=== PATIENT | female | born 1935 | race Caucasian/White ===

== ENCOUNTER 2018-06-16 15:12 | Emergency (ER) | payer MEDICARE, OTHER ==
[~2018-06-16] VITALS: Ht 157.5 cm; Wt 49.9 kg
[~2018-06-16 15:12] MED LIST: ACET325 PO; ALBU90OI; ALBU90OI INH; ALEN70 PO; ALPR.25 PO; ASPI325 PO; ATOR40TA PO; Aspirin EC81 MG PO; Augmentin 875-1 EACH PO; BENZ100A PO; BUDE6HFA INH; CHOL10002 PO; CIME400; CLOP75 PO; DILT120 PO; DULERA 200 MCG/13 GM INH; FAMO20 PO; FLUSAL1005 INH; GABA100 PO; HEMOTC PR; HYDCHL25 PO; HYDCHL50 PO; HYDR1TAB94 PO; HYDROCODONE-HOMA5 ML PO; IBUP800; INSLIS75I SC; LEVFLO500 PO; LEVSOD100; LEVSOD100 PO; LIDO5TP TOP; LORA10 PO; Lisinopril2.5 MG PO; Lopressor 25 mg25 MG PO; MAGCHL64ER PO; MAGOXI400 PO; MONT10T PO; MULVITMIND PO; Miralax17 GM PO; NEBULIZER; NITR.6SL SL; Norco 5-325 Ta1 EACH PO; OMEP20ER PO; POTA8; POTA8 PO; PRAV20; PRAV20 PO; PRED10 PO; Prednisone20 MG PO; QUININE SULFATE; TIOT18; TIOT18 INH; Ventolin Soln3 ML INH; Ventolin5 MG/1 ML INH; Zithromax250 MG PO
== END 2018-06-16 16:37 | disposition home or self-care (01) ==
LOC: ER 15:12
DX: S80.02XA Contusion of left knee, initial encounter (principal); S80.11XA Contusion of right lower leg, initial encounter; S80.12XA Contusion of left lower leg, initial encounter; S70.10XA Contusion of unspecified thigh, initial encounter; X58.XXXA Exposure to other specified factors, initial encounter; Z91.048 Other nonmedicinal substance allergy status; Z79.899 Other long term (current) drug therapy; Z79.82 Long term (current) use of aspirin; J45.909 Unspecified asthma, uncomplicated; J44.9 Chronic obstructive pulmonary disease, unspecified; E11.9 Type 2 diabetes mellitus without complications; Z87.891 Personal history of nicotine dependence
CPT/HCPCS: 93971; 99283-25

== ENCOUNTER 2018-09-04 07:09 | Day surgery (SDC) | payer MEDICARE, OTHER ==
[~2018-09-04] VITALS: Ht 157.5 cm; Wt 47.9 kg
[~2018-09-04 07:09] MED LIST changes: +LIVALO2 MG
--- NOTE | 2018-09-04 08:35 | NUR ---
09/04/18 [address] SHEPHERD AND DR GROSSMAN NOTIFIED PATIENT HAS HX OF CHEST PAIN ON 09/02/18 HAD 09/03/18 SHE STATES SHE TOOK BABY ASPRIN FOR THE MILD DISCOMFORT AND DID NOT HAVE TO USE HER NITRO. DR GROSSMAN ORDERED AN EKG. EKG WAS DONE BY [facility]. DR GROSSMAN REVIEWS EKG AND NO FURTHER ORDERS ARE GIVEN, THEY WILL PROCEED WITH THE SURGERY.
== END 2018-09-04 10:18 | disposition home or self-care (01) ==
LOC: ORSCSDS 07:09
PROVIDERS: Surgery
PROC: 0YU60JZ Supplement Left Inguinal Region with Synthetic Substitute, Open Approach (ICD-10-PCS; principal; 2018-09-04 08:30)
DX: K40.90 Unilateral inguinal hernia, without obstruction or gangrene, not specified as recurrent (principal); I25.5 Ischemic cardiomyopathy; J44.9 Chronic obstructive pulmonary disease, unspecified; I10 Essential (primary) hypertension; I25.10 Atherosclerotic heart disease of native coronary artery without angina pectoris; Z87.891 Personal history of nicotine dependence; Z79.01 Long term (current) use of anticoagulants; Z79.82 Long term (current) use of aspirin; Z79.899 Other long term (current) drug therapy
CPT/HCPCS: 93005; 93010; C1781; J0690; J2250; J3010; J7120

== ENCOUNTER 2018-10-13 15:43 | Inpatient (IN) | payer MEDICARE, OTHER ==
[~2018-10-13] VITALS: Ht 157.5 cm; Wt 47.6 kg
[~2018-10-13 15:43] MED LIST changes: -HYDCHL25 PO; -LEVSOD100 PO; +LEVSOD125 PO; -LIVALO2 MG; +LIVALO2 MG PO; -TIOT18 INH
[2018-10-13 16:42] LABS: BASOPHILS ABSOLUTE AUTO 0.05 K/mm3 (0.00-0.23); BASOPHILS PERCENT AUTO 1 % (0-2); EOSINOPHILS ABSOLUTE AUTO 0.48 K/mm3 (0.00-0.68); EOSINOPHILS PERCENT AUTO 6 % (0-6); Hematocrit 41.7 % (33.0-51.0); IMMATURE GRAN ABSOLUTE AUTO 0.01 K/mm3 (0.00-0.10); IMMATURE GRAN PERCENT AUTO 0 % (0-1); LYMPHOCYTES ABSOLUTE AUTO 2.45 K/mm3 (0.84-5.20); LYMPHOCYTES PERCENT AUTO 29 % (21-46); MONOCYTES ABSOLUTE AUTO 0.68 K/mm3 (0.16-1.47); MONOCYTES PERCENT AUTO 8 % (4-13); Mean Corpuscular HGB 30.9 pg (26.0-34.0); Mean Corpuscular HGB Conc 31.2 g/dL (31.5-36.5); Mean Corpuscular Volume 99 fL (80-100); Mean Platelet Volume 11.7 fL (9.1-12.4); NEUTROPHILS ABSOLUTE AUTO 4.72 K/mm3 (1.96-9.15); NEUTROPHILS PERCENT AUTO 56 % (41-73); Platelet Count 205 K/mm3 (150-400); RDW Coefficient Variation 13.8 % (11.7-14.2); RDW Standard Deviation 50.8 fL (35.1-46.3); Red Blood Cell Count 4.21 M/mm3 (3.80-5.20); White Blood Cell Count 8.39 K/mm3 (4.00-11.30)
[2018-10-13 17:17] LABS: Alanine Aminotransfer (ALT/SGP 19 U/L (12-78); Albumin, Blood 3.8 g/dL (3.4-5.0); Albumin/Globulin Ratio 1.2 (0.8-1.8); Alk Phos 48 U/L (50-136); Anion Gap 3 mmol/L (6-16); Aspartate Aminotrans (AST/SGOT 17 U/L (12-37); Bilirubin, Total 0.6 mg/dL (0.1-1.0); Blood Urea Nitrogen 15 mg/dL (8-24); Bun/Creatinine Ratio 23.3 (12.0-20.0); CO2, Blood 36 mmol/L (21-32); Chloride, Blood 97 mmol/L (98-108); Creatinine, Blood 0.64 mg/dL (0.40-1.00); Globulin, Blood 3.1 g/dL (2.2-4.0); Glomerular Filtration Rate >60 (60-); Glucose, Blood 100 mg/dL (70-99); Sodium, Blood 136 mmol/L (136-145); Total Protein, Blood 6.9 g/dL (6.4-8.2); Troponin I 0.022 ng/mL (0.000-0.040)
[2018-10-13] MEDS ORDERED: CLOP75 PO (17:46)
[2018-10-13] MEDS ORDERED: ALBU90OI6 INH (17:47)
[2018-10-13] MEDS ORDERED: POTCHL20ER PO (17:49)
[2018-10-13] MEDS ORDERED: HYDCHL25 PO (18:56)
--- NOTE | 2018-10-14 03:34 | NUR ---
SHIFT SUMMARY THE PT ADMITTED FOR CPOD EXACERBATION. FULL CODE. REGULAR DIET. BEDREST. TELE-SINUS TACHYCARDIA WITH PAC AND PVC AT A RATE OF 88 PER BOOM TENDER. THE PT WAS TRIED ON BIPAP AND CPAP BUT REPORTED NO INCREASED RELIEF. THE PT DID HOWEVER REPORT SOME RELIEF SINCE ADMISSION AFTER RECIEVING DIURETIC. LOVENOX. 20 G IV TO L WRIST. STANDBY ASSIST TO BSC, CAN WALK TO BATHROOM BUT IS BEDREST AND HAS SOME WEAKNESS. 4 L O2 AND PT REPORTS THIS IS HER CONTINUOUS BASELINE DOSE AT HOME. TAKE MEDICATION WHOLE WITH WATER WITHOUT COMPLICATIONS. THE PT PRESENTED TO [employer] WITH C/O WORSENING SOB OVER THE PAST 2 WEEKS. THE PT REPORTED HAVING INCREASED WEAKNESS AND COUGH WITH ONLY CLEAR PHLEM OVER THE PAST TWO WEEKS. LS ARE DIMINISHED. THE PT HAD A SNACK WHEN ARRIVING ON MEDICAL UNIT. THE PT IS ALERT AND ORIENTED X3, PLEASENT AND COOPERATIVE WITH CARE. APPEARS TO BE RESTING COMFORTABLY AT THIS TIME WITH NO APPARENT SIGNS OF ACUTE DISTRESS. ABLE TO MAKE NEEDS KNOWN AND CALL LIGHT IN REACH.
[2018-10-14 06:02] LABS: Anion Gap 7 mmol/L (6-16); Blood Urea Nitrogen 19 mg/dL (8-24); Bun/Creatinine Ratio 31.2 (12.0-20.0); CO2, Blood 35 mmol/L (21-32); Calcium, Blood 8.5 mg/dL (8.5-10.1); Chloride, Blood 95 mmol/L (98-108); Creatinine, Blood 0.61 mg/dL (0.40-1.00); Glomerular Filtration Rate >60 (60-); Glucose, Blood 166 mg/dL (70-99); Potassium, Blood 3.8 mmol/L (3.5-5.5); Sodium, Blood 137 mmol/L (136-145)
--- NOTE | 2018-10-14 15:55 | NUR ---
SHE HAS REMAINED ON 3L NC ALL DAY. SHE RECEIVED NTG X1 FOR PAIN/PRESSURE IN HER L SCAPULA AND ANT. LEFT CHEST. NTG WAS EFFECTIVE. SHE IS ALWAYS SOB. SHE JUST LEFT BY W/C TO GO DOWNSTAIRS FOR HER CTA AFTER THE CUSHION MAKER CONSULTED WITH HER. ECHO DONE JUST BEFORE THE CUSHION MAKER ARRIVED. TELE SHOWS SINUS TACH WITH PVC'S AND PAC'S. RATE MOST RECENTLY 115. TROP 0.092. 2ND ONE DRAWN BUT NOT RESULTED YET. 2ND IV SITE STARTED SPECIFICALLY FOR THE CTA. SHE IS VAGUE AND ROUNDABOUT WHEN ANSWERING QUESTIONS.
--- NOTE | 2018-10-14 16:13 | NUR ---
I UPDATED ON THE MANAGER TRAINEE'S ORDERS, THAT THE PATIENT JUST RETURNED FROM HER CTA AND LAB JUST REPORTED TO ME A CRITICAL TROPONIN RESULT. HE WILL EVALUATE.
[2018-10-14 16:47] LABS: Mean Platelet Volume 11.6 fL (9.1-12.4); Platelet Count 226 K/mm3 (150-400)
[2018-10-14 17:02] LABS: International Normalized Ratio 1.03; Prothrombin Time Results 10.9 Sec (9.7-11.5)
--- NOTE | 2018-10-14 18:36 | NUR ---
SHE HAD A BUSY DAY WITH AN ECHO, CARDIOLOGY CONSULT, CTA OF THE CHEST MULTIPLE LAB DRAWS AND NOW A HEPARIN DRIP HAS BEEN STARTED. SHE HAS BEEN SOB. SHE HAD CP AND WAS GIVEN NTG X1. PAS ON BILAT. TELE ON. NO CHANGE.LAST TROP 0.884. NEXT TROP AT 8 PM.
--- NOTE | 2018-10-15 06:43 | NUR ---
SHIFT SUMMARY PT IS AN 83 Y/O FEMALE, ADMITTED FOR COPD EXACERBATION. PER DAY SHIFT REPORT, SHE BEGAN HAVING CHEST PAIN YESTERDAY MORNING. THIS EVENING, SHE DENIED ANY PAIN AT REST, BUT SAID SHE STILL FELT "HEAVINESS" IN HER CHEST WITH EXERTION. ON THE RECHECK, THE PT'S TROPONIN HAD INCREASED FROM 0.8 TO 1.8. AN ORDER WAS LEFT NOT TO INFORM THE PHYSICIAN OF CRITICAL TROPONINS. VITALS REMAINED STABLE. SHE DID REPORT SOME INCREASED SOB WITH MOVEMENT AND EXERTION. NO NAUSEA REPORTED. NO OTHER ACUTE CHANGES IN PT CONDITION NOTED. WILL CONTINUE TO MONITOR AND TREAT PER EMAR.
[2018-10-15 06:51] LABS: BASOPHILS ABSOLUTE AUTO 0.01 K/mm3 (0.00-0.23); BASOPHILS PERCENT AUTO 0 % (0-2); EOSINOPHILS PERCENT AUTO 0 % (0-6); Hematocrit 37.7 % (33.0-51.0); Hemoglobin 12.2 g/dL (11.5-16.0); IMMATURE GRAN ABSOLUTE AUTO 0.07 K/mm3 (0.00-0.10); IMMATURE GRAN PERCENT AUTO 0 % (0-1); LYMPHOCYTES ABSOLUTE AUTO 1.46 K/mm3 (0.84-5.20); LYMPHOCYTES PERCENT AUTO 9 % (21-46); MONOCYTES ABSOLUTE AUTO 0.81 K/mm3 (0.16-1.47); MONOCYTES PERCENT AUTO 5 % (4-13); Mean Corpuscular HGB 30.9 pg (26.0-34.0); Mean Corpuscular HGB Conc 32.4 g/dL (31.5-36.5); Mean Platelet Volume 11.5 fL (9.1-12.4); NEUTROPHILS ABSOLUTE AUTO 14.11 K/mm3 (1.96-9.15); NEUTROPHILS PERCENT AUTO 86 % (41-73); Platelet Count 203 K/mm3 (150-400); RDW Coefficient Variation 14.2 % (11.7-14.2); RDW Standard Deviation 49.9 fL (35.1-46.3); Red Blood Cell Count 3.95 M/mm3 (3.80-5.20); White Blood Cell Count 16.46 K/mm3 (4.00-11.30)
[2018-10-15 06:58] LABS: Mean Corpuscular Volume 95 fL (80-100)
[2018-10-15 07:26] LABS: Anion Gap 7 mmol/L (6-16); Blood Urea Nitrogen 30 mg/dL (8-24); Bun/Creatinine Ratio 41.6 (12.0-20.0); CO2, Blood 36 mmol/L (21-32); Calcium, Blood 8.2 mg/dL (8.5-10.1); Chloride, Blood 92 mmol/L (98-108); Creatinine, Blood 0.72 mg/dL (0.40-1.00); Glomerular Filtration Rate >60 (60-); Glucose, Blood 131 mg/dL (70-99); Potassium, Blood 3.4 mmol/L (3.5-5.5); Sodium, Blood 135 mmol/L (136-145)
--- NOTE | 2018-10-15 12:44 | NUR ---
NO COMPLAINTS OF CP TODAY SO FAR. SHE HAS A CRITICALLY HIGH TROPONIN AND HAS BEEN NPO EXCEPT WATER AND MEDS FOR A CARDIAC ANGIOGRAM LATER TODAY. HEPARIN GGT WAS TITRATED UP FOR ANOTHER SUBTHERAPEUTIC PTT THIS MORNING. TELE IS NSR WITH PAC'S AND PVC'S. WEARING PAS BILAT. WHEN IN BED. SHE HAS BEEN VOIDING ON BSC A LOT D/T IV LASIX.
--- NOTE | 2018-10-15 13:34 | NUR ---
PATIENT DID NOT EAT BREAKFAST OR LUNCH THIS SHIFT DUE TO BEING NPO FOR A PROCEDURE.
--- NOTE | 2018-10-15 14:05 | NUR ---
Initial Visit: Palliative Care Consult for Advanced Care Planning and AD/POLST. Pt is A&Ox4 and denies pain at this time. She reports mild dyspnea and mild anxiety. Pt stated that she just received a breathing treatment shortly before visit and does not tolerate the treatment well. Pt also states the mild anxiety is due to the anticipation of her procedure today. Engaged in therapeutic conversation regarding advance care planning. Pt is of Zoroastrianism efren and lives at home alone. She has a daughter who lives in [place] and a brother who lives local. Pt ahs a caregiver who assists with her laundry and house cleaning for 3 hours twice a week. Pt reports that she has been feeling more fatigue over the last 6 months. She requires the use of a walker on occasion other he independent at home. She reports having rails in her bathroom and bath tub to assist her in safety while bathing. She also has a shower bench. Pt reports having a senior change management manager who provides transportation to and from appointments. Engaged in discussion regarding disease process and importance of communication with her PCP and specialist in knowing her disease trajectory. Encouraged Pt to have these discussions routinely so she can plan accordingly. Discussed AD/POLST with Pt and she reports no interest at this time. Pt does express concerns of needing a new bed and states she has difficulty breathing at night and lying flat. Suggested to Pt to have discussion with her PCP for prescription of hospital bed. Pt is agreeable to suggestion. Pt reports no other concerns at this time. Will remain available
--- NOTE | 2018-10-15 14:22 | NUR ---
Late entry from initial visit. Spoke with Pt's respiratory therapist regarding Pt's difficulty tolerating her albuterol treatment. She reports that she will have the medication changed.
--- NOTE | 2018-10-15 15:42 | NUR ---
Mrs. Guerra was rather quiet. She is awaiting a proceedure to determine poc. She said very little but was pleasant. She allowed me to pray for her at bedside. Advised patternmaker sample services would remain available.
--- NOTE | 2018-10-15 15:56 | NUR ---
TO PERFORMANCE ANALYST AT 1527 VIA W/C. SHE HAS BEEN NPO EXCEPT FOR SOME ICE CHIPS. NO COMPLAINTS TODAY. HER FRIEND BROUGHT HER IN HER OVERNIGHT BAG. ALL BELONGINGS HAVE BEEN TAKEN DOWN TO ROOM PCU 12 WHERE SHE WILL BE POST PRCEDURE. HEPARIN DRIP WAS STOPPED AT 1526 WHEN SHE TRANSPORTED DOWNSTAIRS TO PERFORMANCE ANALYST.
--- NOTE | 2018-10-15 16:14 | NUR ---
REPORT GIVEN TO ALLEN LARRY IN PCU.
--- NOTE | 2018-10-15 19:43 | NUR ---
END OF SHIFT SUMMARY ASSUMED CARE OF PATIENT AROUND 1630 FROM AIRCRAFT MANAGER. RECEIVED INITIAL REPORT FROM MEDICAL FLOOR NURSE AND THEN AIRCRAFT MANAGER NURSE. PT HAD ANGIOGRAM DUE TO CRITICALLY HIGH TROPONIN OF 4.3 THIS AM AND CP. ANGIO FOUND LESIONS IN RCA THAT WERE CALCIFIED. UNABLE TO INTERVENE AT THIS FACILITY. PT TO BE TRANSFERED TO ACCEPTING DOCTOR EITHER TONIGHT OR TOMORROW 10/16/2018 TO [facility] IN [place] FOR PROCEDURE. PATIENT HAS TR BAND IN PLACE RW. A TOTAL OF 4ML AIR HAS BEEN REMOVED, NO BLEEDING NOTED. DISTAL AREA OF HAND WARM, GOOD CAP REFILL, NO PAIN REPORTED BY PATIENT IN WRIST OR CHEST. DR SILVA TO ROOM AT 1800 TO ASSESS PT, PLACES ORDER TO CONTINUE HEPARIN DRIP AT RATE PREVIOUSLY INFUSING PREPROCEDURE. PHARMACY NOTIFIED. PT HAS CONTINUED TO DENY PAIN, STATES NO NAUSEA, OR ANY REAL CONCERNS AT THIS TIME. FAMILY HAS BEEN NOTIFIED OF PLAN TO TRANSFER TO [place]. LAST TROPONIN LEVEL 2.39. REPORT GIVEN TO IVAN YA RN.
[2018-10-16 02:16] LABS: Hemoglobin 11.9 g/dL (11.5-16.0); Mean Corpuscular HGB 31.6 pg (26.0-34.0); Mean Corpuscular HGB Conc 33.1 g/dL (31.5-36.5); Mean Corpuscular Volume 96 fL (80-100); Platelet Count 206 K/mm3 (150-400); RDW Coefficient Variation 14.6 % (11.7-14.2); RDW Standard Deviation 51.6 fL (35.1-46.3); Red Blood Cell Count 3.77 M/mm3 (3.80-5.20); White Blood Cell Count 13.15 K/mm3 (4.00-11.30)
[2018-10-16 02:34] LABS: Anion Gap 5 mmol/L (6-16); Blood Urea Nitrogen 36 mg/dL (8-24); Bun/Creatinine Ratio 40.4 (12.0-20.0); CO2, Blood 37 mmol/L (21-32); Calcium, Blood 8.2 mg/dL (8.5-10.1); Chloride, Blood 96 mmol/L (98-108); Creatinine, Blood 0.89 mg/dL (0.40-1.00); Glomerular Filtration Rate >60 (60-); Glucose, Blood 121 mg/dL (70-99); Potassium, Blood 3.8 mmol/L (3.5-5.5); Sodium, Blood 138 mmol/L (136-145)
--- NOTE | 2018-10-16 02:59 | NUR ---
PREVIOUS TRANSFER PT WAS TRANSFERRED INTO PCU POST ANGIO ON 10/15/18 @ 1700. NO ORDER WAS PLACED AT THAT TIME, SO ORDER PLACED PER DR. MAN AT THIS TIME.
--- NOTE | 2018-10-16 06:31 | NUR ---
SHIFT SUMMARY PT ALERT AND ORIENTED X 3 THROUGHOUT SHIFT. SHE WAS PLEASANT AND COOPERATIVE WITH VITALS AND ASSESSMENTS. PT DENIED ANY COMPLAINTS OF PAIN DURING THE NIGHT. SHE HAD HER TR BAND REMOVED AND OPSITE PLACED TO RIGHT WRIST. NO BLEEDING, REDNESS, SWELLING, OBSERVED TO SITE. SHE HAD NO ACUTE CHANGES TO VITALS OR MENTATION. SHE WILL CONTINUE TO BE MONITORED UNTIL HANDOFF TO DAYSHIFT RN.
--- NOTE | 2018-10-16 07:07 | NUR ---
RIGHT WRIST SITE VISUALIZED ON HANDOFF. NO BLEEDING, BRUISING, SWELLING OR HEAMTOMA.
--- NOTE | 2018-10-16 13:51 | NUR ---
REPORT GIVEN TO JOHNSON LARRY AT [facility].
--- NOTE | 2018-10-16 14:56 | NUR ---
PT TRANSFER / SHIFT SUMMARY ASSUMED CARE OF PT @0700. PT PRESENTS STABLE. VS HAVE REMAINED STABLE THIS SHIFT. HR NSR/PAC/PVC, 80'S TO 100'S. PT ON 3LNC, SATS >94%. THIS IS BASELINE O2 FOR PATIENT. LUNGS DIM TO AUSCULTATION. ARMBOARD IN PLACE, RW DUE TO POST ANGIO YESTERDAY. ANGIO SITE, PINHOLE, LITTLE BLOOD PRESENT. DISTAL SITE WARM, CAP REFILL <3SEC. NO OBVIOUS SIGNS OF EXTERNALK/INTERNAL HEMORRHAGE AT SITE. PT DENYING PAIN AND CP THIS SHIFT. PT HAS BEEN UP AND OUT OF BED FOR BREAKFAST IN CHAIR. HEPARIN DRIP INFUSION @19 U/KG/HR, TITRATED FROM 18 U/KG/HR @1200 VIA PHARMACIST. REPORT GIVEN TO NURSE RECEIVING PATIENT TRANSFER. SEE NOTE. PT RECEIVES BED AT [facility]. COBRA TRANSFER PAPERWORK COMPLETED. [facility] CREW ARRIVED @1430 TO TRANSFER PT. BACK UP IV LINE PLACED BY ANDREW WOODRUFF. HEPARING TO CONTINUE INFUSING WITH TRANSFER. PT TRANSFERED VIA [facility] @1450. PT HAS BELONGINGS. PAPERWORK GIVEN TO AMB CREW.
== END 2018-10-16 15:27 | disposition short-term general hospital (02) | DRG 189 ==
LOC: ER 15:43 → MEDS 17:45 → PCU 10-15 15:30
PROVIDERS: Internal Medicine Cardiovascular Disease; Pharmacist; Physician Assistant; ADMIT Internal Medicine
PROC: 5A09357 Assistance with Respiratory Ventilation, Less than 24 Consecutive Hours, Continuous Positive Airway Pressure (ICD-10-PCS; principal; 2018-10-15)
PROC: B2111ZZ Fluoroscopy of Multiple Coronary Arteries using Low Osmolar Contrast (ICD-10-PCS; 2018-10-15)
DX: J96.21 Acute and chronic respiratory failure with hypoxia (principal); I21.4 Non-ST elevation (NSTEMI) myocardial infarction; J44.1 Chronic obstructive pulmonary disease with (acute) exacerbation; I50.32 Chronic diastolic (congestive) heart failure; Q21.1 Atrial septal defect; I25.10 Atherosclerotic heart disease of native coronary artery without angina pectoris; Z87.891 Personal history of nicotine dependence; Z99.81 Dependence on supplemental oxygen; I11.0 Hypertensive heart disease with heart failure; E03.9 Hypothyroidism, unspecified; R00.0 Tachycardia, unspecified; M81.0 Age-related osteoporosis without current pathological fracture; Z95.0 Presence of cardiac pacemaker; I25.5 Ischemic cardiomyopathy; Z79.82 Long term (current) use of aspirin; I49.1 Atrial premature depolarization
CPT/HCPCS: 36415; 71045; 71260; 80048; 80053; 83880; 84484; 85025; 85027; 85049; 85347; 85379; 85610; 85730; 92920; 93005; 93010; 93306; 93454; 94640; 94660; 94760; 96374; 97165; 97530; 99285-25; C1725; C1769; C1887; C1894; C9113; J1644; J1650; J1940; J2250; J2920; J3010; J7030; J7512; Q9967

== ENCOUNTER 2018-10-19 17:14 | Inpatient (IN) | payer MEDICARE, OTHER ==
[~2018-10-19] VITALS: Ht 152.4 cm; Wt 48.8 kg
[~2018-10-19 17:14] MED LIST changes: +ALBU90OI6 INH; +HYDCHL25 PO; +POTCHL20ER PO
[2018-10-19] MEDS ORDERED: DILT180 PO (17:50)
[2018-10-19] MEDS ORDERED: CLOP75 PO (17:50)
[2018-10-19] MEDS ORDERED: CHOL10002 PO (17:50)
[2018-10-19] MEDS ORDERED: NITR.4SL SL (17:52)
[2018-10-19 18:10] LABS: Base Excess Venous 7.9 mmol/L; Bicarbonate Venous 30.9 mmol/L (24.0-30.0); PCO2 Venous 44.2 mmHg (38-42); PO2 Venous 136 mmHg (38-42); pH Blood Venous 7.46 (7.34-7.37)
[2018-10-19 18:20] LABS: BASOPHILS ABSOLUTE AUTO 0.01 K/mm3 (0.00-0.23); BASOPHILS PERCENT AUTO 0 % (0-2); EOSINOPHILS ABSOLUTE AUTO 0.01 K/mm3 (0.00-0.68); EOSINOPHILS PERCENT AUTO 0 % (0-6); Hematocrit 36.1 % (33.0-51.0); Hemoglobin 11.7 g/dL (11.5-16.0); IMMATURE GRAN ABSOLUTE AUTO 0.05 K/mm3 (0.00-0.10); IMMATURE GRAN PERCENT AUTO 0 % (0-1); LYMPHOCYTES ABSOLUTE AUTO 1.49 K/mm3 (0.84-5.20); LYMPHOCYTES PERCENT AUTO 12 % (21-46); MONOCYTES ABSOLUTE AUTO 1.59 K/mm3 (0.16-1.47); MONOCYTES PERCENT AUTO 12 % (4-13); Mean Corpuscular HGB 30.7 pg (26.0-34.0); Mean Corpuscular HGB Conc 32.4 g/dL (31.5-36.5); Mean Corpuscular Volume 95 fL (80-100); Mean Platelet Volume 12.9 fL (9.1-12.4); NEUTROPHILS ABSOLUTE AUTO 9.84 K/mm3 (1.96-9.15); NEUTROPHILS PERCENT AUTO 76 % (41-73); Platelet Count 198 K/mm3 (150-400); RDW Coefficient Variation 14.5 % (11.7-14.2); RDW Standard Deviation 50.4 fL (35.1-46.3); Red Blood Cell Count 3.81 M/mm3 (3.80-5.20); White Blood Cell Count 12.99 K/mm3 (4.00-11.30)
[2018-10-19 18:35] LABS: Alanine Aminotransfer (ALT/SGP 74 U/L (12-78); Albumin, Blood 3.7 g/dL (3.4-5.0); Albumin/Globulin Ratio 1.2 (0.8-1.8); Alk Phos 45 U/L (50-136); Anion Gap 6 mmol/L (6-16); Aspartate Aminotrans (AST/SGOT 37 U/L (12-37); Bilirubin, Total 0.7 mg/dL (0.1-1.0); Blood Urea Nitrogen 36 mg/dL (8-24); Bun/Creatinine Ratio 47.9 (12.0-20.0); CO2, Blood 31 mmol/L (21-32); Calcium, Blood 8.4 mg/dL (8.5-10.1); Chloride, Blood 95 mmol/L (98-108); Creatinine, Blood 0.75 mg/dL (0.40-1.00); Globulin, Blood 3.1 g/dL (2.2-4.0); Glomerular Filtration Rate >60 (60-); Glucose, Blood 109 mg/dL (70-99); Potassium, Blood 3.7 mmol/L (3.5-5.5); Sodium, Blood 132 mmol/L (136-145); Total Protein, Blood 6.8 g/dL (6.4-8.2)
[2018-10-19] MEDS ORDERED: DULERA 100 MCG/13 GM PO (20:28)
[2018-10-19] MEDS ORDERED: PANT20 PO (20:30)
[2018-10-19] MEDS ORDERED: ALBU3IS NEB (20:36)
[2018-10-19] MEDS ORDERED: TIOT18 INH (20:37)
[2018-10-19] MEDS ORDERED: ATOR80 PO (20:37)
[2018-10-19] MEDS ORDERED: GABA100 PO (21:13)
--- NOTE | 2018-10-20 04:20 | NUR ---
SUMMARY: PT ADMITTED TO ROOM 301 AT 2134. SHE'S A/OX4, SPECIFIES NEEDS AND IS 1-2 ASSIST OOB. SHE HAD X4 STENTS PLACED RECENTLY IN [place] AND WAS D/C'D ON 10/19/18 BUT CAME TO ER W/SOB AND HYPOXIA. CRITICAL TROPONIN NOTED BUT ER MD DOCUMENTATION STATES ANTICIPATED D/T RECENT STENTS. SHE DENIES CP AND S/S CARDIAC DISTRESS. PT CONT'S SOB W/ACTIVITY AND CAN BECOME SO JUST WHILE TALKING/EATING. LS ARE CLEAR AND DIM IN BASES. SHE'S NSR/S.TACH W/PAC'S, RATE 80-100'S AND BECOMES SLIGHTLY TACHYCARDIC WHEN SOB. RT PROVIDED BX TX'S AND TITRATED O2 UP TO 6L D/T DESATS PER CONT BIOX. IV ABX RECIEVED THIS SHIFT FOR PROBABLE RLL PNM W/PLEURAL EFFUSION. 2+EDEMA NOTED TO BLE'S AND SOME DEPENDENT EDEMA NOTED TO BUE'S. ARMS ARE GROSSLY BRUISED FROM STENT PLACEMENT AND HOSPITALISATIONS. TEGADERM DX TO R.WRIST CATH SITE IS C/D/I. VSS/AFEBRILE, NO ACUTE CHANGES. WILL MONITOR AND REPORT TO DAY RN.
[2018-10-20 04:48] LABS: BASOPHILS PERCENT AUTO 0 % (0-2); EOSINOPHILS PERCENT AUTO 0 % (0-6); IMMATURE GRAN ABSOLUTE AUTO 0.01 K/mm3 (0.00-0.10); IMMATURE GRAN PERCENT AUTO 0 % (0-1); LYMPHOCYTES ABSOLUTE AUTO 0.48 K/mm3 (0.84-5.20); LYMPHOCYTES PERCENT AUTO 12 % (21-46); MONOCYTES ABSOLUTE AUTO 0.05 K/mm3 (0.16-1.47); MONOCYTES PERCENT AUTO 1 % (4-13); Mean Corpuscular HGB 31.1 pg (26.0-34.0); Mean Corpuscular HGB Conc 32.4 g/dL (31.5-36.5); Mean Corpuscular Volume 96 fL (80-100); NEUTROPHILS ABSOLUTE AUTO 3.43 K/mm3 (1.96-9.15); NEUTROPHILS PERCENT AUTO 86 % (41-73); Platelet Count 165 K/mm3 (150-400); RDW Coefficient Variation 14.6 % (11.7-14.2); RDW Standard Deviation 51.8 fL (35.1-46.3); Red Blood Cell Count 3.54 M/mm3 (3.80-5.20); White Blood Cell Count 3.97 K/mm3 (4.00-11.30)
[2018-10-20 05:05] LABS: Alanine Aminotransfer (ALT/SGP 63 U/L (12-78); Albumin, Blood 3.2 g/dL (3.4-5.0); Albumin/Globulin Ratio 1.1 (0.8-1.8); Alk Phos 43 U/L (50-136); Anion Gap 5 mmol/L (6-16); Aspartate Aminotrans (AST/SGOT 31 U/L (12-37); Bilirubin, Total 0.4 mg/dL (0.1-1.0); Blood Urea Nitrogen 33 mg/dL (8-24); CO2, Blood 33 mmol/L (21-32); Calcium, Blood 7.9 mg/dL (8.5-10.1); Chloride, Blood 99 mmol/L (98-108); Creatinine, Blood 0.72 mg/dL (0.40-1.00); Globulin, Blood 2.9 g/dL (2.2-4.0); Glomerular Filtration Rate >60 (60-); Glucose, Blood 143 mg/dL (70-99); Potassium, Blood 4.2 mmol/L (3.5-5.5); Sodium, Blood 137 mmol/L (136-145); Total Protein, Blood 6.1 g/dL (6.4-8.2)
--- NOTE | 2018-10-20 07:00 | NUR ---
PT WAS UP TO BSC THIS MORNING AT 0620 AND DESATED TO 80'S% ON 6L HUMIDIFIED O2 AND HR ELEVATED TO 150'S BPM PER CONT BIOX. PT WASN'T RECOVERING AND APPEARED VERY SOB W/ACCESSORY MUSCLE USE. RESPS EVEN BUT LABORED AND RR WAS 20'S RESPS PER MINUTE. O2 TURNED UP TO 11L TO MAINTAIN SPO2>90%. TELEMETRY STATED PT HR WAS MAINTAINING >130'S AND APPEARED A.FIB. DAY SHIFT RN REPORT GIVEN AND SHE CALLED HOSPITALIST FOR EKG ORDER. EKG SHOWED AFIB W/RVR. AM PO CARDIZEM GIVEN EARLY AND DAY RN INHERITED CARE AND ADDITIONAL ORDERS AT THAT TIME.
--- NOTE | 2018-10-20 09:23 | NUR ---
ELEVATED HEART RATE/TRANSFER THIS RN RECEIVED REPORT FROM NOC RN THAT PT'S HEART RATE HAD INCREASED TO 150'S AND SUSTAINING AFTER GETTING UP TO BSC. DR. ALLEN WAS NOTIFIED AND EKG DONE AND FOUND THAT PT WAS IN AFIB WITH RVR. IV CARDIZEM GIVEN X2 AND IV METOPROLOL IV ADMINISTERED X1. PT'S HEART RATE CONTINUES TO BE 150'S. PT SHORT OF BREATH AND OXYGEN SATURATION 92% ON 9 LITERS VIA NC. PT TRANSFERRED TO PCU 16 AND REPORT GIVEN AT BEDSIDE.
--- NOTE | 2018-10-20 09:27 | NUR ---
PT TRANFERRED FROM MEDICAL FLOOR. SHE WENT INTO AFIB AND AFTER SEVERAL INTERVENTIONS FROM AND HER RN ORDERED THE TRANSFER TO PCU TO START AMNIODERONE DRIP. PT ARRIVED ON UNIT, SHE IS SOB AND VERY ANXIOUS AND FIDGITING. SHE IS NOTICIBLY SHAKING AND STATES THE HAS A TREMOR AT BASELINE. USED THERAPUTIC COMMUNICATION AND GOT PT TO BEGIN DEEP BREATHING AND STARTING TO SLOW DOWN. SHE STARTED TO CALM HERSELF DOWN SHE CONVERTED TO NSR FROM AFIB. ACCORDING TO SOA ENGINEER PT CONVERTED AT 0927.
--- NOTE | 2018-10-20 16:27 | NUR ---
PT SYNCOPAL EVENT: MARKIE CEDENO AND MARKIE STAS REPORTED THAT PATIENT WAS OUT OF CHAIR AND HAD CORDS STRETCHED OUT, HE WAS WEAK AND APPEARED CONFUSED. GUEST LAUNDRY ATTENDANT'S HELPED PT BACK TO CHAIR AND TOOK BLOOD PRESSURE, 78/49. PT ASSISTED BACK TO BED, TOOK ANOTHER BP SYSTOLIC IN THE 115 RANGE. AFTER RESTING AND VISITING WITH DR. ABREU WHO DROPPED IN TO SEE PATIENT BP RESOLVED TO 130'S SYSTOLICALLY. DR. ABREU STATED PT NEEDS TO ONLY GET UP WITH ASSISTANCE AND NEEDS TO STAY ON BEDREST UNTIL DINNER TO RECOVER. WILL CONTINUE TO MONITOR AND TREAT PER ORDERS.
--- NOTE | 2018-10-20 19:47 | NUR ---
PT HAD A WONDERFUL DAY TODAY, SHE HAS CONTINUED TO HAVE STABLE VS AND POSITIVE AFFECT THROUGHOUT THE DAY. SHE HAD A BATH AND RELAXED DURING THIS SHIFT. PT ABLE TO GET UP TO BSC. O2 6.5 LPM VIA HIGH FLOW O2 VIA NC.
--- NOTE | 2018-10-21 07:33 | NUR ---
SUMMARY: PT HAS DONE WELL TONIGHT, NO ACUTE CHANGE. VSS, A/O. CONTINUES ON 7L HIGH FLOW NC SPO2 88-94%. PT SOB ON EXERTION, DENIES CHEST PAIN. TELE HAS BEEN NSR TONIGHT. ANTIBIOTIC GIVEN. REPEAT CHEST XRAY THIS AM. NO ACUTE CONCERNS AT THIS TIME. REPORT GIVEN TO DAY RN.
--- NOTE | 2018-10-21 15:51 | NUR ---
BEGINNING OF SHIFT Assumed care at 0700. Report recieved from Marlene LARRY. Pt on 7 LPM at time of report. Titrated down to 5 LPM. Pt states her baseline O2 use is 4 LPM. Shift assessment completed. Pt medical floor status without telemetry currently. Pt has been ambulating into bathroom after working with physical therapy. Tolerating activity well. Bed in lowest position. Call light in reach. Pt denies need at this time.
--- NOTE | 2018-10-21 18:48 | NUR ---
SHIFT SUMMARY Pt has been having several bowel movements this shift. Pt steady on feet. Pt has been into bathroom several times. Pt currently on 3 LPM NC. She states she typically wears 3 LPM, but a few days before admission to hospital, she increased it to 4 LPM. Pt tolerating activity well. Will continue to closely monitor until care handoff and bedside report with oncoming RN.
[2018-10-22 04:20] LABS: Anion Gap 3 mmol/L (6-16); Blood Urea Nitrogen 26 mg/dL (8-24); Bun/Creatinine Ratio 33.1 (12.0-20.0); CO2, Blood 40 mmol/L (21-32); Calcium, Blood 7.6 mg/dL (8.5-10.1); Chloride, Blood 94 mmol/L (98-108); Creatinine, Blood 0.79 mg/dL (0.40-1.00); Glomerular Filtration Rate >60 (60-); Glucose, Blood 99 mg/dL (70-99); Potassium, Blood 3.2 mmol/L (3.5-5.5); Sodium, Blood 137 mmol/L (136-145)
--- NOTE | 2018-10-22 04:57 | NUR ---
SHIFT SUMMARY PT ADMITTED FOR PNEUMONIA INVOLVING THE R LUNG. FULL CODE. CARDIAC DIET. HEPARIN. 22G IV L FA. 4L O2 NC. SBA WITH TRANSFER. TAKES MEDICATIONS WHOLE. PT HAD 4 STENTS PLACED ON 10/17/18IN [place]. R RADIAL SITE IS KARI. PT RRAN[facility]ERRED FROM [facility] FLOOR DUE TO A-FIB WITH RVT BUT CONVERTED SHORTLY AFTER TRANSFER. THE PT PRESENTED TO THE ED WITH C/O SOB. THE PT WAS NOTED TO HAVE ACUTE ON CHRONIC RESPIRATORY FAILURE WITH HYPOXIA SECONDARY TO R UPPER LOBE PNEUMONIA WITH A COPD EXACERBATION. HOWEVER, PER REPORT THE PT IS BELIEVED TO HAVE A R PLEURAL EFFUSION AND IN RESPIRATORY FAILURE, AND NOT THOUGHT TO HAVE PNEUMONIA PER REPORT SO ANTIBIOTICS WERE DISCONTINUED. THE PT NEEDS STRENGTHENING IN ORDER TO BE ABLE TO DC HOME. THE PT HAS APPEARED TO SLEEP COMFORTABLY MOST OF THE NIGHT WITH NO APPARENT SIGNS OF ACUTE DISTRESS. ABLE TO MAKE NEEDS KNOWN AND CALL LIGHT IN REACH.
--- NOTE | 2018-10-22 12:42 | NUR ---
BEGINNING OF SHIFT Assumed care at 0700. Report recieved from Martin LARRY. Shift assessment completed. Pt currently on 3 LPM NC. Tolerates activity well. Bed in lowest position. Call light in reach. Pt denies need at this time.
--- NOTE | 2018-10-22 19:16 | NUR ---
SHIFT SUMMARY No acute changes t/o shift. Pt independent to bedside commode for last part of shift. Pt tolerated activity well. Currently on 5 LPM NC. Bedside report given to oncoming nurses Luca LARRY and Katharine LARRY.
--- NOTE | 2018-10-22 22:58 | NUR ---
PROVIDER NOTIFIED SRI SORIA NP CALLED REGARDING PT CONTINUING TO BLEED AT PREVIOUS HEPARIN INJECTION SITES. NOON DOSE OF 5000 UNITS HEPARING HELD DUE TO BLEEDING OOZING FROM SITES PER VEE LARRY. 2100 DOSE OF 5000 HELD DUE TO PATIENT REFUSING MED R/T CONTINUED BLEEDING FROM SITES AND OOZING FROM PORES SURROUNDING SITES. AREAS COVERED WITH MEPILEX DRESSINGS. YANG DOE TO LOOK OVER PT CHART AND WILL MAKE DECISOION REGARDING THESE FINDINGS.
--- NOTE | 2018-10-23 05:04 | NUR ---
END OF SHIFT SUMMARY ASSUMED CARE OF PT @1900. PT ALERT AND ORIENTED, TALKING WITH STAFF. PT HAS 5L O2, SATS >92%. LUNGS DIM T/O TO AUSCULTATION. PT HAS BEEN UP TO BSC A COUPLE TIMES THIS SHIFT. PT APPEARS TO BE RESTING T/O SHIFT. ASSURANCE MANAGER INSURANCE SORIA CALLED REGARDING CONTINUED BLEEDING FROM HEPARIN INJ SITES, SEE NOTE. HEPARIN ORDER DC'D BY ASSURANCE MANAGER INSURANCE. PT TO POSSIBLY DC IN AM. WILL CONTINUE TO MONITOR PT UNTIL SHIFT CHANGE.
[2018-10-23 06:41] LABS: Hematocrit 36.7 % (33.0-51.0); Hemoglobin 11.8 g/dL (11.5-16.0); Mean Corpuscular HGB 30.5 pg (26.0-34.0); Mean Corpuscular HGB Conc 32.2 g/dL (31.5-36.5); Mean Corpuscular Volume 95 fL (80-100); Platelet Count 243 K/mm3 (150-400); RDW Coefficient Variation 14.1 % (11.7-14.2); RDW Standard Deviation 49.1 fL (35.1-46.3); Red Blood Cell Count 3.87 M/mm3 (3.80-5.20); White Blood Cell Count 8.82 K/mm3 (4.00-11.30)
[2018-10-23 07:00] LABS: Anion Gap 5 mmol/L (6-16); Blood Urea Nitrogen 20 mg/dL (8-24); Bun/Creatinine Ratio 30.6 (12.0-20.0); CO2, Blood 40 mmol/L (21-32); Calcium, Blood 8.1 mg/dL (8.5-10.1); Chloride, Blood 90 mmol/L (98-108); Creatinine, Blood 0.65 mg/dL (0.40-1.00); Glomerular Filtration Rate >60 (60-); Glucose, Blood 140 mg/dL (70-99); Sodium, Blood 135 mmol/L (136-145)
[2018-10-23 07:07] LABS: BASOPHILS PERCENT MAN 0 % (0-2); EOSINOPHILS PERCENT MAN 0 % (0-6); LYMPHOCYTES ABSOLUTE MAN 1.76 K/mm3 (0.84-5.20); LYMPHOCYTES PERCENT MAN 20 % (21-46); MONOCYTES ABSOLUTE MAN 0.97 K/mm3 (0.16-1.47); MONOCYTES PERCENT MAN 11 % (4-13); NEUTROPHILS ABSOLUTE MAN 6.08 K/mm3 (1.96-9.15); SEG NEUTROPHILS PERCENT MAN 69 % (41-73); TOTAL CELLS COUNTED 100
--- NOTE | 2018-10-23 18:22 | NUR ---
SHIFT SUMMARY Assumed care of pt at 0700. Report received from Luca LARRY. Pt has remained on 5 LPM NC for entire shift. O2 saturations 92-93% at rest and 88% with activity. Pt has been independent to bedside commode. No changes since shift assessment. Pt transferred from PCU 16 to room 208 at 1756. Pt departed unit via wheelchair, accomapanied by this RN. Report given to Nanette LARRY. Pt transferred from wheelchair to bed with standby assist. Medications, chart, and belongings transferred with patient.
--- NOTE | 2018-10-24 04:11 | NUR ---
SHIFT SUMMARY PT A&O X4 T/O SHIFT. 4L O2 VIA NC. EVEN WOB; DIM IN BILAT LUNG BASES. PT UP TO BSC. PT BED MOBILE. BLE ELEVATED. CALL LIGHT IN REACH; PT DEMONSTRATES USE. WCTM UNTIL REPORT TO DAY SHIFT RN.
[2018-10-24 05:05] LABS: BASOPHILS ABSOLUTE AUTO 0.02 K/mm3 (0.00-0.23); BASOPHILS PERCENT AUTO 0 % (0-2); EOSINOPHILS ABSOLUTE AUTO 0.17 K/mm3 (0.00-0.68); EOSINOPHILS PERCENT AUTO 2 % (0-6); Hematocrit 41.3 % (33.0-51.0); IMMATURE GRAN ABSOLUTE AUTO 0.03 K/mm3 (0.00-0.10); IMMATURE GRAN PERCENT AUTO 0 % (0-1); LYMPHOCYTES ABSOLUTE AUTO 1.74 K/mm3 (0.84-5.20); LYMPHOCYTES PERCENT AUTO 18 % (21-46); MONOCYTES ABSOLUTE AUTO 0.98 K/mm3 (0.16-1.47); MONOCYTES PERCENT AUTO 10 % (4-13); Mean Corpuscular HGB 30.3 pg (26.0-34.0); Mean Corpuscular HGB Conc 31.5 g/dL (31.5-36.5); Mean Corpuscular Volume 96 fL (80-100); Mean Platelet Volume 11.6 fL (9.1-12.4); NEUTROPHILS PERCENT AUTO 70 % (41-73); Platelet Count 282 K/mm3 (150-400); RDW Coefficient Variation 13.9 % (11.7-14.2); RDW Standard Deviation 49.2 fL (35.1-46.3); Red Blood Cell Count 4.29 M/mm3 (3.80-5.20); White Blood Cell Count 9.94 K/mm3 (4.00-11.30)
[2018-10-24 06:00] LABS: Anion Gap 2 mmol/L (6-16); Blood Urea Nitrogen 28 mg/dL (8-24); Bun/Creatinine Ratio 32.7 (12.0-20.0); CO2, Blood 42 mmol/L (21-32); Calcium, Blood 9.5 mg/dL (8.5-10.1); Chloride, Blood 92 mmol/L (98-108); Creatinine, Blood 0.86 mg/dL (0.40-1.00); Glomerular Filtration Rate >60 (60-); Glucose, Blood 134 mg/dL (70-99); Potassium, Blood 4.3 mmol/L (3.5-5.5); Sodium, Blood 136 mmol/L (136-145)
--- NOTE | 2018-10-24 07:48 | NUR ---
ASSESSMENT: PT ASLEEP. RESP E/U. 4L O2 ON AT THIS TIME. NO S/S DISTRESS. CALL LIGHT IN REACH. PT INDEP TO BSC NEEDED. WILL ALLOW REST AND FULLY ASSESS WHEN PT IS AWAKE.
--- NOTE | 2018-10-24 12:01 | NUR ---
THERAPY: PT WORKED WITH THERAPY. PT AT BASELINE WITH ACTIVITY TOLERANCE. PLAN TO DC HOME WITH HOME HEALTH THIS AFTERNOON.
[2018-10-24] MEDS ORDERED: METO25 PO (17:08)
[2018-10-24] MEDS ORDERED: CEFU250T47 PO (17:08)
[2018-10-24] MEDS ORDERED: FURO20 PO (17:09)
[2018-10-24] MEDS ORDERED: Micro-K10 MEQ PO (17:09)
--- NOTE | 2018-10-24 18:36 | NUR ---
DISCHARGE: PT HAD LOW BLOOD PRESSURE THIS AFTERNOON, LETHARGIC. BP MANUALLY CHECKED TO BE 86/42. MD NOTIFIED OF PATIENT STATUS AND STATES " BLOOD PRESSURE HAS BEEN THAT WAY AND SHE HAS BEEN LETHARGIC FOR DAYS." ADVOCATED FOR DELAYED DC. 250CC BOLUS ORDERED AND VERBAL ORDER TO DC. IV INFLILTRATED BOLUS STARTED, MD NOTIFIED. BOLUS CANCELLED. BP RECHECKED TO BE IN THE ONE TEENS SYSTOLIC. MD STATES PT CAN DISCHARGE. AGAIN EXPRESSED CONCERN R/T DISCHARGE PATIENT ALSO HAS SOCIAL ISSUES. NURSING HONING MACHINE OPERATOR PRODUCTION NOTIFIED OF DC CONCERNS. PT HAS RIGHT TO REFUSE DC SHE IS MEDICARE PATIENT BUT PATIENT DECLINES. MEDS SENT TO PHARMACY. PT SENT WITH HOME O2. VERBALIZED UNDERSTANDING OF INSTRUCTIONS, FOLLOW UP AND MEDS. PT NEIGHBOR HERE TO ROLL SHOP SUPERVISOR PATIENT. HOME HEALTH ORDERS SENT TO [facility] AND MESSAGE LEFT FOR CARE MANAGEMENT TO FOLLOW UP.
== END 2018-10-24 17:55 | disposition home health service (06) | DRG 193 ==
LOC: ER 17:14 → MEDS 20:09 → PCU 22:03 → MEDS 22:03 → PCU 10-20 09:23 → SURS 10-23 17:45
PROVIDERS: Hospitalist; Nurse Practitioner Acute Care; Physician Assistant; ADMIT Internal Medicine
DX: J18.1 Lobar pneumonia, unspecified organism (principal); J96.21 Acute and chronic respiratory failure with hypoxia; J44.0 Chronic obstructive pulmonary disease with (acute) lower respiratory infection; J44.1 Chronic obstructive pulmonary disease with (acute) exacerbation; I50.32 Chronic diastolic (congestive) heart failure; I25.5 Ischemic cardiomyopathy; I48.91 Unspecified atrial fibrillation; I25.10 Atherosclerotic heart disease of native coronary artery without angina pectoris; E87.6 Hypokalemia; E03.9 Hypothyroidism, unspecified; I11.0 Hypertensive heart disease with heart failure; Z87.891 Personal history of nicotine dependence; K21.9 Gastro-esophageal reflux disease without esophagitis; Z95.5 Presence of coronary angioplasty implant and graft; I25.2 Old myocardial infarction; E78.5 Hyperlipidemia, unspecified; Z86.73 Personal history of transient ischemic attack (TIA), and cerebral infarction without residual deficits; Z99.81 Dependence on supplemental oxygen; Z51.5 Encounter for palliative care; E11.9 Type 2 diabetes mellitus without complications
CPT/HCPCS: 36415; 71045; 71046; 80048; 80053; 82803; 82947; 83605; 83880; 84145; 84484; 85007; 85025; 85027; 87040; 93005; 93010; 94640; 94644; 94660; 94760; 94761; 94762; 96365; 96367; 96375; 97110; 97116; 97161; 97530; 99285-25; J0456; J0696; J1644; J1650; J1940; J2543; J2930; J3370; J7030; J7050

== ENCOUNTER 2018-10-26 09:53 | Emergency (ER) | payer MEDICARE, OTHER ==
[~2018-10-26] VITALS: Ht 162.6 cm; Wt 59.0 kg
[~2018-10-26 09:53] MED LIST changes: +ALBU3IS NEB; +ATOR80 PO; +CEFU250T47 PO; +DILT180 PO; +DULERA 100 MCG/13 GM PO; +FURO20 PO; +METO25 PO; +Micro-K10 MEQ PO; +NITR.4SL SL; +PANT20 PO; +TIOT18 INH
[2018-10-26 11:20] LABS: BASOPHILS ABSOLUTE AUTO 0.02 K/mm3 (0.00-0.23); BASOPHILS PERCENT AUTO 0 % (0-2); EOSINOPHILS ABSOLUTE AUTO 0.13 K/mm3 (0.00-0.68); EOSINOPHILS PERCENT AUTO 1 % (0-6); Hematocrit 40.1 % (33.0-51.0); Hemoglobin 12.8 g/dL (11.5-16.0); IMMATURE GRAN ABSOLUTE AUTO 0.03 K/mm3 (0.00-0.10); IMMATURE GRAN PERCENT AUTO 0 % (0-1); LYMPHOCYTES ABSOLUTE AUTO 1.34 K/mm3 (0.84-5.20); LYMPHOCYTES PERCENT AUTO 14 % (21-46); MONOCYTES ABSOLUTE AUTO 0.91 K/mm3 (0.16-1.47); MONOCYTES PERCENT AUTO 10 % (4-13); Mean Corpuscular HGB 30.5 pg (26.0-34.0); Mean Corpuscular HGB Conc 31.9 g/dL (31.5-36.5); Mean Corpuscular Volume 96 fL (80-100); Mean Platelet Volume 11.4 fL (9.1-12.4); NEUTROPHILS ABSOLUTE AUTO 7.05 K/mm3 (1.96-9.15); NEUTROPHILS PERCENT AUTO 74 % (41-73); Platelet Count 309 K/mm3 (150-400); RDW Coefficient Variation 14.1 % (11.7-14.2); RDW Standard Deviation 49.6 fL (35.1-46.3); White Blood Cell Count 9.48 K/mm3 (4.00-11.30)
[2018-10-26 11:28] LABS: Alanine Aminotransfer (ALT/SGP 73 U/L (12-78); Albumin, Blood 3.9 g/dL (3.4-5.0); Albumin/Globulin Ratio 1.1 (0.8-1.8); Alk Phos 59 U/L (50-136); Anion Gap 5 mmol/L (6-16); Aspartate Aminotrans (AST/SGOT 41 U/L (12-37); Bilirubin, Total 0.5 mg/dL (0.1-1.0); Blood Urea Nitrogen 39 mg/dL (8-24); Bun/Creatinine Ratio 52.3 (12.0-20.0); CO2, Blood 36 mmol/L (21-32); Chloride, Blood 94 mmol/L (98-108); Creatinine, Blood 0.75 mg/dL (0.40-1.00); Globulin, Blood 3.6 g/dL (2.2-4.0); Glomerular Filtration Rate >60 (60-); Glucose, Blood 163 mg/dL (70-99); Potassium, Blood 4.3 mmol/L (3.5-5.5); Sodium, Blood 135 mmol/L (136-145); Total Protein, Blood 7.5 g/dL (6.4-8.2)
== END 2018-10-26 15:45 | disposition home or self-care (01) ==
LOC: ER 09:53
PROVIDERS: Emergency Medicine
DX: R06.00 Dyspnea, unspecified (principal); Z88.8 Allergy status to other drugs, medicaments and biological substances; Z79.899 Other long term (current) drug therapy; Z79.82 Long term (current) use of aspirin; J44.9 Chronic obstructive pulmonary disease, unspecified; E11.9 Type 2 diabetes mellitus without complications; I25.10 Atherosclerotic heart disease of native coronary artery without angina pectoris; I50.32 Chronic diastolic (congestive) heart failure
CPT/HCPCS: 36415; 71046; 80053; 83880; 85025; 93005; 93010; 99285-25

== ENCOUNTER 2018-10-31 22:13 | Inpatient (IN) | payer MEDICARE, OTHER ==
[~2018-10-31] VITALS: Ht 154.9 cm; Wt 44.6 kg
[2018-10-31 23:03] LABS: BASOPHILS ABSOLUTE AUTO 0.03 K/mm3 (0.00-0.23); BASOPHILS PERCENT AUTO 0 % (0-2); EOSINOPHILS ABSOLUTE AUTO 0.02 K/mm3 (0.00-0.68); EOSINOPHILS PERCENT AUTO 0 % (0-6); Hematocrit 39.2 % (33.0-51.0); Hemoglobin 12.1 g/dL (11.5-16.0); IMMATURE GRAN ABSOLUTE AUTO 0.04 K/mm3 (0.00-0.10); IMMATURE GRAN PERCENT AUTO 0 % (0-1); LYMPHOCYTES ABSOLUTE AUTO 1.66 K/mm3 (0.84-5.20); LYMPHOCYTES PERCENT AUTO 15 % (21-46); MONOCYTES PERCENT AUTO 8 % (4-13); Mean Corpuscular HGB 30.3 pg (26.0-34.0); Mean Corpuscular HGB Conc 30.9 g/dL (31.5-36.5); Mean Corpuscular Volume 98 fL (80-100); Mean Platelet Volume 11.7 fL (9.1-12.4); NEUTROPHILS ABSOLUTE AUTO 8.23 K/mm3 (1.96-9.15); NEUTROPHILS PERCENT AUTO 76 % (41-73); Platelet Count 248 K/mm3 (150-400); RDW Coefficient Variation 13.7 % (11.7-14.2); RDW Standard Deviation 49.9 fL (35.1-46.3); White Blood Cell Count 10.88 K/mm3 (4.00-11.30)
[2018-10-31 23:23] LABS: International Normalized Ratio 0.94
[2018-10-31 23:25] LABS: Base Excess Venous 15.1 mmol/L; Bicarbonate Venous 34.9 mmol/L (24.0-30.0); PCO2 Venous 68.5 mmHg (38-42); PO2 Venous 26.8 mmHg (38-42); pH Blood Venous 7.38 (7.34-7.37)
[2018-10-31 23:33] LABS: Alanine Aminotransfer (ALT/SGP 41 U/L (12-78); Albumin, Blood 3.5 g/dL (3.4-5.0); Alk Phos 70 U/L (50-136); Anion Gap 4 mmol/L (6-16); Aspartate Aminotrans (AST/SGOT 23 U/L (12-37); Bilirubin, Total 0.7 mg/dL (0.1-1.0); Blood Urea Nitrogen 32 mg/dL (8-24); Bun/Creatinine Ratio 46.8 (12.0-20.0); CO2, Blood 39 mmol/L (21-32); Calcium, Blood 9.3 mg/dL (8.5-10.1); Chloride, Blood 95 mmol/L (98-108); Creatinine, Blood 0.68 mg/dL (0.40-1.00); Globulin, Blood 3.6 g/dL (2.2-4.0); Glomerular Filtration Rate >60 (60-); Glucose, Blood 140 mg/dL (70-99); Potassium, Blood 4.1 mmol/L (3.5-5.5); Sodium, Blood 138 mmol/L (136-145); Total Protein, Blood 7.1 g/dL (6.4-8.2); Troponin I <0.015 ng/mL (0.000-0.040)
--- NOTE | 2018-11-01 07:32 | NUR ---
a+o getting better, still cold, wrapping in warm blankets, call light in reach, saline locked, 5L via nc, hob raised, rt visiting. sbar report provided to day shift
[2018-11-01 08:35] LABS: Anion Gap 4 mmol/L (6-16); Blood Urea Nitrogen 30 mg/dL (8-24); CO2, Blood 36 mmol/L (21-32); Calcium, Blood 8.6 mg/dL (8.5-10.1); Chloride, Blood 98 mmol/L (98-108); Creatinine, Blood 0.57 mg/dL (0.40-1.00); Glomerular Filtration Rate >60 (60-); Glucose, Blood 198 mg/dL (70-99); Potassium, Blood 4.5 mmol/L (3.5-5.5); Sodium, Blood 138 mmol/L (136-145)
--- NOTE | 2018-11-01 19:10 | NUR ---
SHIFT SUMMARY: NO ACUTE CHANGES TO REPORT THIS SHIFT. PT ALERT; HX CVA; OCC CONFUSION; CALM AND COOEPRATIVE WITH CARE. NO C/O PAIN THIS SHIFT. LUNGS COARSE; PRODUCTIVE COUGH; PT INSTRUCTED TO DEEP COUGH TO MOBILIZE SECRETIONS. 4L O2-PT USES 4L @ HOME. PT EVAL TODAY; 1-ASSIST c FWW. IV ABX CONTINUING. REPORT GIVEN TO ONCOMING RN.
--- NOTE | 2018-11-02 05:18 | NUR ---
VSS, AFEBRILE, A/O, SOB/MILLER, FRAIL, SCHEDULED BREATHING TX, 4LNC, PT SLEPT WELL OVERNOC, NO COMPLAINTS, NO SIGNIFICANT CHANGES NOTED. WILL REPORT TO ON-COMING SHIFT.
--- NOTE | 2018-11-02 15:50 | NUR ---
SUMMARY PT IS A/O X4, CHR BUE TREMOR, COOPERATIVE AFFECT. SHE STATE CONTINUING SHORTNESS OF BREATH THAT INCREASES WITH EXERTION. APPEARS SOB @ REST. O2 @ 4L HOME DOSE, BIOX 91%, LUNGS DECREASED T/O WITH EXP WHEEZE. RT PROVIDING NEB TX'S. SHE WAS ABLE TO PARTICIPATE WITH OCCUPATIONAL THERAPY TODAY, AMBULATE IN ROOM TO BS, 1 ASSIST W FWW. GAIT APPEARS SOMEWHAT UNSTEADY. PALLIATIVE CARE RN CONTACTED FOR CONSULT.
--- NOTE | 2018-11-02 16:06 | NUR ---
Spiritual Care inital visit: Brianna is known to me from previous hospitalizations. She is very SOB and has to take breaks in conversation. She admits to feeling frustrated that "all this is happening so fast." Brianna tells me she is bewildered as to why she is so sick as she has led a healthly, active life. She does not feel she is nearing end-of-life and is satisfied with her full code status as she is "hoping for a few more good years." Brianna appears quite frail and admits she is needing more help with ADLs. I provided spiritual direction and prayer to good effect. Brianna may benefit from a conversation regarding what "full code" entails. I will remain available.
--- NOTE | 2018-11-02 18:16 | NUR ---
BIOX 86% THIS AFTERNOON ON 4L VIA N/C. RESPTHER NOTIFIED, IN TO SEE PT, GIVE NEB TX & INCREASE O2 TO 8L VIA OXIMIZER, BIOX 93-94%, DR CHUN NOTIFIED.
[2018-11-03 05:37] LABS: BASOPHILS ABSOLUTE AUTO 0.01 K/mm3 (0.00-0.23); BASOPHILS PERCENT AUTO 0 % (0-2); EOSINOPHILS PERCENT AUTO 0 % (0-6); Hematocrit 34.3 % (33.0-51.0); Hemoglobin 11.3 g/dL (11.5-16.0); IMMATURE GRAN ABSOLUTE AUTO 0.08 K/mm3 (0.00-0.10); IMMATURE GRAN PERCENT AUTO 1 % (0-1); LYMPHOCYTES ABSOLUTE AUTO 1.52 K/mm3 (0.84-5.20); LYMPHOCYTES PERCENT AUTO 9 % (21-46); MONOCYTES ABSOLUTE AUTO 0.92 K/mm3 (0.16-1.47); MONOCYTES PERCENT AUTO 6 % (4-13); Mean Corpuscular HGB 30.6 pg (26.0-34.0); Mean Corpuscular HGB Conc 32.9 g/dL (31.5-36.5); Mean Corpuscular Volume 93 fL (80-100); Mean Platelet Volume 11.8 fL (9.1-12.4); NEUTROPHILS ABSOLUTE AUTO 13.65 K/mm3 (1.96-9.15); NEUTROPHILS PERCENT AUTO 84 % (41-73); Platelet Count 235 K/mm3 (150-400); RDW Coefficient Variation 13.8 % (11.7-14.2); RDW Standard Deviation 46.8 fL (35.1-46.3); Red Blood Cell Count 3.69 M/mm3 (3.80-5.20); White Blood Cell Count 16.18 K/mm3 (4.00-11.30)
[2018-11-03 05:50] LABS: Anion Gap 3 mmol/L (6-16); Blood Urea Nitrogen 26 mg/dL (8-24); Bun/Creatinine Ratio 31.3 (12.0-20.0); CO2, Blood 39 mmol/L (21-32); Calcium, Blood 8.4 mg/dL (8.5-10.1); Chloride, Blood 89 mmol/L (98-108); Creatinine, Blood 0.83 mg/dL (0.40-1.00); Glomerular Filtration Rate >60 (60-); Glucose, Blood 114 mg/dL (70-99); Sodium, Blood 131 mmol/L (136-145)
--- NOTE | 2018-11-03 07:33 | NUR ---
Rn summary: Patient is alert and oriented. She continues on 8 liters via oximizer. Pt continues to be SOB with activity. Pt does get up with 1 assist to BSC. Pt states she does get very SOB when up but recovers well. Breath sounds are tight with minimal air movement heard posteriorly, air heard anteriorly but tight. Pt c/o mild sore throat. Tele shows multifocal artrial tach with PVC's per registered nurse cardiac telemetry. Call light in reach. Pt uses appropriately. Did rest on and off. Denies pain.
--- NOTE | 2018-11-03 09:11 | NUR ---
RAPID RESPONSE PCU MX TECH CALL APPROX [phone] REPORT HR JUMP TO 190'S AFIB. WORKFORCE DEVELOPMENT VICE PRESIDENT NOTIFIED, RAPID RESPONSE CALLED. PT STATE NO CHEST PAIN, SHE CONTINUES SHORT OF BREATH. RESP THERAPY STATE HAD GIVEN NEB TX JUST PRIOR TO INCIDENT. DR CHUN IN TO SEE PT ORDER METOPROLOL 5MG IVP, RATE DECREASE SOMEWHAT TO 130-150, DR CHUN ORDER TRANSFER TO ICU. SUPVR ARRANGING FOR ROOM.
--- NOTE | 2018-11-03 11:08 | NUR ---
pcu charge lpnmalinda to room to start cardiazem gtt while room being prpared in pcu. pt convert back to sinus rhythm shortly after, rate 89. dr gaines notified order stop transfer, stop cardiazem gtt. charge lpn notified.
--- NOTE | 2018-11-03 16:44 | NUR ---
SUMMARY RAPID RESPONSE THIS AM D/T AFIB W RVR, HR 190'S. AM BP MEDS + IV METOPROLOL 5MG GIVEN DURING RR. DR CHUN ORDERED CARDIAZEM GTT, PCU X RAY OPERATOR UP TO ADMINISTER WHILE WAITING FOR PCU BED. PT CONVERTED BACK TO SINUS AFTER APPROX [address] CHUN CANCEL TRANSFER TO PCU. PT HAS CONTINUED SR 80-90'S W PAC'S. SHE CONTINUES SHORT OF BREATH, DX COPD EXAC. RESPTHER ASSISTING W O2 TITRATION & NEB TX'S. O2 @ 6L VIA OXIMIZER, BIOX 96% LAST VS. LUNGS DECREASED T/O WITH EXP WHEEZE @ X'S. PT IS A/O X4, APPEARS WEAK/FATIGUED/FRAIL. SHE IS PLEASANT/COOPERATIVE. STATE NO PAIN TODAY. 1 ASSIST TO BSC.
--- NOTE | 2018-11-04 03:47 | NUR ---
A-FIB W/RVR: PT'S VS WERE RECORDED A 6 FOR VEW. TELE MONITOR REPORTS PT IS IN AFIB. THIS HAPPENED ONCE ON DAY SHIFT YESTEREDAY. DR WARREN WAS NOTIFIED. NEW ORDERS NOTED. DR. WARREN REQUESTED THAT CARDEZEM 10 IVP GIVEN NOW. THEN TRANSFER PT TO PCU BED, GIVE CARDEZEM DRIP AND TITRATE FOR HEART RATE. CHARGE NURSE KENISHA RENTERIA WAS NOTIFIED. CHARGE NURSE CONTACTED THE HYDROMETEOROLOGICAL TECHNICIAN FOR A BED IN PCU/ICU. CARDEZEM 10 MG PUSHED OVER 5 MINUTES W/PULSE OXIMETER FOR MONITORING HEART RATE. PT'S HR DID DROP BRIEFLY BUT WAS NOT SUSTAINED. TELE MONITOR NOTED THAT THERE HAS BEEN NO SIGNIFICANT CHANGE YET. THE CHARGE RHIANNA HAS BEEN NOTIFIED. WILL CONTINUE TO MONITOR CLOSELY.
--- NOTE | 2018-11-04 03:57 | NUR ---
PT SPONTANEOUSLY CARDIOVERTED TO NSR PER TELE ETHYLBENZENE CRACKING SUPERVISOR ROGER PASTOR. WILL CONTINUE TO MONITOR.
--- NOTE | 2018-11-04 04:49 | NUR ---
DR WARREN HAS BEEN UPDATED ON THE PT. PT HAS NOT BEEN TRANSFERED TO PCU PER ORDER. DR. WARREN ORDERED TO D/C AGAPITO DELA CRUZ
--- NOTE | 2018-11-04 05:23 | NUR ---
VSS AT THIS TIME. PT REMAINS IN NSR. PT IS EXHAUSTED WITH ALL OF THE ACTIVITY OVERNOC. NO SIGNIFICANT CHANGES SINCE SHE CONVERTED TO NSR. PT OBSERVED TO BE RESTING QUEITLY IN HER BED WITH HER EYES CLOSED FROM TIME TO TIME. PT DOES NOT APPEAR TO BE SLEEPING DEEPLY. WILL REPORT TO ON-C0MING SHIFT.
[2018-11-04 05:57] LABS: Anion Gap 3 mmol/L (6-16); Blood Urea Nitrogen 25 mg/dL (8-24); Bun/Creatinine Ratio 33.6 (12.0-20.0); CO2, Blood 41 mmol/L (21-32); Calcium, Blood 8.5 mg/dL (8.5-10.1); Chloride, Blood 89 mmol/L (98-108); Creatinine, Blood 0.75 mg/dL (0.40-1.00); Glomerular Filtration Rate >60 (60-); Glucose, Blood 111 mg/dL (70-99); Potassium, Blood 3.6 mmol/L (3.5-5.5); Sodium, Blood 133 mmol/L (136-145)
--- NOTE | 2018-11-04 17:49 | NUR ---
SUMMARY PT SITTING UP IN BED EATING DINNER, PT HAS WORKED WITH PT AND OT TODAY, SOB WITH ANY EXERTION, COOPERATIVE WITH CARE, VSS, NO ACUTE CHANGES, WILL CONT TO MONITOR
--- NOTE | 2018-11-04 23:17 | NUR ---
CALLED TO HOSPITALIST FOR STOOL SOFTNER PER PT REQUEST. RECIEVED ORDER FOR DOCUSATE SODIUM. SEE ORDER.
--- NOTE | 2018-11-05 04:30 | NUR ---
NOC SHIFT SUMMARY PT IS PLEASANT AND COOPERATIVE WITH CARE. SHE HAS SLEPT OFF AND ON THIS NIGHT. VITALS AT 0414 SHOWED INCREASED RESP RATE 30 AND SATTING AT 88 ON 6 LITERS. VIEW OF 3. INCREASED O2 TO 7LNC AND CALLED RT FOR BREATHING TREATMENT. PT CURRENTLY IS RECIEVEING TREATMENT. WILL CONTINUE TO MONITOR.
[2018-11-05 06:27] LABS: Anion Gap 3 mmol/L (6-16); Blood Urea Nitrogen 29 mg/dL (8-24); Bun/Creatinine Ratio 39.6 (12.0-20.0); CO2, Blood 38 mmol/L (21-32); Calcium, Blood 8.4 mg/dL (8.5-10.1); Chloride, Blood 90 mmol/L (98-108); Creatinine, Blood 0.73 mg/dL (0.40-1.00); Glomerular Filtration Rate >60 (60-); Glucose, Blood 85 mg/dL (70-99); Potassium, Blood 3.8 mmol/L (3.5-5.5); Sodium, Blood 131 mmol/L (136-145)
[2018-11-05 15:17] LABS: PCO2 Arterial 48.6 mmHg (35-45); PO2 Arterial 47.4 mmHg (80-100); pH Blood Arterial 7.53 (7.35-7.45)
--- NOTE | 2018-11-05 16:30 | NUR ---
Patient arrived via gurney from medical floor. [facility].She is on 10L O2 via high flow NC and sats 97% with labored breathing. Just prior to arrival she she had PE study in CT. She denies any pain.
--- NOTE | 2018-11-05 16:39 | NUR ---
PT STARTED WITH 6L O2 NC AT BEGINING OF SHIFT, LUNGS COARS THROUGHOUT, LABORED SHALLOW BREATHING. THIS AFTERNOON PT O2 INCREASED TO 8L HF NC. RT NOTIFIED, RT EVALUATED PT AND INCREASED O2 TO 10L O2 HF NC. SPOKE WITH DR. CHUN AND RECIEVED ORDERS FOR BIPAP PROTOCOL. 40MG IV LASIX GIVEN. TRANSFER TO PCU. 1550 PT TO IMAGING FOR PE STUDY. BED ASSIGNMENT RECIEVED, ICU2 ALTHOUGH PCU STATUS. REPORT GIVEN TO Hardy FERNANDEZ RN. PT TRANSFERED FROM IMAGING TO ICU2. PT'S DAUGHTER, JAYLENE, NOTIFIED OF TRANSFER.
--- NOTE | 2018-11-05 17:52 | NUR ---
No significant changes with patient. She remains on 10L O2 and has some labored breathing but denies any distress. She also denies any current pain. Naren LARRY stated he will contact family and notify of transfer to ICU but PCU status. Will continue to monitor.
--- NOTE | 2018-11-05 20:10 | NUR ---
ASSESSMENT PT AWAKE SITTING UP IN BED EATING DINNER. DENIES PAIN OR DISCOMFORT. RESP SHALLOW, RATE 24. PT STATES,"I'M COUGHING BUT NOT GETTING ANYTHING UP". DENIES SOB. STATES,"THAT IS MUCH BETTER". LUNGS COARSE AND DECREASED IN THE BASES WITH EXP WHEEZES. O2 AT 10 LITERS VIA HIGH FLOW NC. HEART RATE IRREGULAR IN THE 90"S. BP STABLE. NTG PASTE TO LEFT CHEST WALL. DENIES CHEST PAIN OR PRESSURE. BT+ ABD SOFT AND NONTENDER. DENIES N/V. ATE 30% OF DINNER. IV'S TO RIGHT ARM SALINE LOCKED. UP TO BSC TO VOID WITH FLOOR NURSE. SCD'S ON.
--- NOTE | 2018-11-05 23:30 | NUR ---
RT DECREASED O2 TO LITERS INCREASED BACK UP TO 9 LITERS. LUNGS COARSE WITH EXP WHEEZES.
[2018-11-06 04:05] LABS: BASOPHILS PERCENT AUTO 0 % (0-2); EOSINOPHILS PERCENT AUTO 0 % (0-6); Hematocrit 36.2 % (33.0-51.0); Hemoglobin 11.9 g/dL (11.5-16.0); IMMATURE GRAN PERCENT AUTO 0 % (0-1); LYMPHOCYTES ABSOLUTE AUTO 0.53 K/mm3 (0.84-5.20); LYMPHOCYTES PERCENT AUTO 10 % (21-46); MONOCYTES ABSOLUTE AUTO 0.21 K/mm3 (0.16-1.47); MONOCYTES PERCENT AUTO 4 % (4-13); Mean Corpuscular HGB 30.5 pg (26.0-34.0); Mean Corpuscular HGB Conc 32.9 g/dL (31.5-36.5); Mean Corpuscular Volume 93 fL (80-100); Mean Platelet Volume 11.5 fL (9.1-12.4); NEUTROPHILS PERCENT AUTO 86 % (41-73); Platelet Count 277 K/mm3 (150-400); RDW Coefficient Variation 13.8 % (11.7-14.2); RDW Standard Deviation 47.1 fL (35.1-46.3); White Blood Cell Count 5.24 K/mm3 (4.00-11.30)
[2018-11-06 04:28] LABS: Anion Gap 4 mmol/L (6-16); Blood Urea Nitrogen 39 mg/dL (8-24); Bun/Creatinine Ratio 53.2 (12.0-20.0); CO2, Blood 40 mmol/L (21-32); Calcium, Blood 8.4 mg/dL (8.5-10.1); Chloride, Blood 88 mmol/L (98-108); Creatinine, Blood 0.73 mg/dL (0.40-1.00); Glomerular Filtration Rate >60 (60-); Glucose, Blood 181 mg/dL (70-99); Phosphorus, Blood 2.6 mg/dL (2.5-4.9); Potassium, Blood 4.2 mmol/L (3.5-5.5); Sodium, Blood 132 mmol/L (136-145)
[2018-11-06 04:30] LABS: Troponin I 0.021 ng/mL (0.000-0.040)
--- NOTE | 2018-11-06 05:52 | NUR ---
SHIFT SUMMARY PT RESTING QUIELTY. AWAKENS EASILY. MOVING SELF IN BED. UP TO THE BSC WITH ONE STANDBY ASSIST. LUNGS REMAIN COARSE WITH EXP WHEEZES. O2 TITRATED FROM 11 LITERS DOWN TO 8 LITER THAN BACK UP TO 10 LITERS VIA HIGH FLOW NC TO KEEP SPO2 ABOVE 90%. NONPRODUCTIVE COUGH NOTED. ENCOURAGED PT TO USE IS AND C&DB. HEART RATE IRREGULAR. DENIES PAIN OR DISCOMFORT. VSS. PT RECEIVING NTG PASTE TO CHEST WALL AND SOLUMEDROL Q6HRS. PT REPORT,"FEELING BETTER". REPORT TO ON COMING NURSE
--- NOTE | 2018-11-06 07:32 | NUR ---
Recieved report from Saniya LARRY. She is sitting up in bed getting breathing treatment. She is on 10 L O2 HF NC and sats 98%. She is very shaky and moderatly weak. She is a standby assist when getting up to [facility]. She has SCD's on bilaterally. She has 18ga IV in ELANA dressingintact and site WNL's, flushed and SL'd. She also has 20ga LFA dressingintact and site WNL's and was flushed and is SL'd. Incentive spirometer at bedside and reviewed use.
--- NOTE | 2018-11-06 09:30 | NUR ---
Patient tolerated PO meds all at once with water. She remains on 10L O2 HF NC and sats mid 90% unless talking and drops to high 80%. She continues to be full one assist when up. VSS.
--- NOTE | 2018-11-06 12:02 | NUR ---
Patient saw Dr Vee and she wrote new orders and she will get flutter valve and right side percussion therapy. Notified RT of new orders. Reported off to Jerry RN for patient care.
--- NOTE | 2018-11-06 12:08 | NUR ---
ASSUMED CARE OF PT. PT IS ALERT AND ORIENTED. PT HAS SOME SHORTNESS OF BREATH. SHE'S ON 10LPM HI-FLOW NC. LUNG SOUNDS ARE COARSE SLIGHTLY DIMINISHED ON THE LEFT SIDE.
--- NOTE | 2018-11-06 17:58 | NUR ---
SHIFT SUMMARY: PT IS STILL ON 10L HI-FLOW NC. PT ALERT AND ORIENTED. AFEBRILE. STILL GETS SHORT OF BREATH WITH LITTLE ACTIVTY.
--- NOTE | 2018-11-06 19:30 | NUR ---
ASSUMED CARE OF PT REPORT RCV'D FROM UMESH MEMBRENO RN. PT ALERT AND ORIENTED SITTING UP IN BED. PT ON 10L HFNC WITH SATS IN THE LOW 90'S. RESPIRATORY THERAPIST IN ROOM TO ADMINISTER PRESCRIBED CPT. PT COARSE WITH WHEEZES THROUGHOUT. PT DENIES PAIN OR NEEDS AT THIS TIME. SEE FULL SHIFT ASSESSMENT.
[2018-11-07 03:26] LABS: BASOPHILS ABSOLUTE AUTO 0.01 K/mm3 (0.00-0.23); BASOPHILS PERCENT AUTO 0 % (0-2); EOSINOPHILS PERCENT AUTO 0 % (0-6); Hematocrit 35.3 % (33.0-51.0); Hemoglobin 11.5 g/dL (11.5-16.0); IMMATURE GRAN ABSOLUTE AUTO 0.03 K/mm3 (0.00-0.10); IMMATURE GRAN PERCENT AUTO 0 % (0-1); LYMPHOCYTES ABSOLUTE AUTO 0.48 K/mm3 (0.84-5.20); LYMPHOCYTES PERCENT AUTO 5 % (21-46); MONOCYTES ABSOLUTE AUTO 0.56 K/mm3 (0.16-1.47); MONOCYTES PERCENT AUTO 6 % (4-13); Mean Corpuscular HGB 30.1 pg (26.0-34.0); Mean Corpuscular HGB Conc 32.6 g/dL (31.5-36.5); Mean Corpuscular Volume 92 fL (80-100); Mean Platelet Volume 11.6 fL (9.1-12.4); NEUTROPHILS ABSOLUTE AUTO 8.95 K/mm3 (1.96-9.15); NEUTROPHILS PERCENT AUTO 89 % (41-73); Platelet Count 260 K/mm3 (150-400); RDW Coefficient Variation 13.8 % (11.7-14.2); RDW Standard Deviation 46.8 fL (35.1-46.3); Red Blood Cell Count 3.82 M/mm3 (3.80-5.20); White Blood Cell Count 10.03 K/mm3 (4.00-11.30)
[2018-11-07 03:44] LABS: Albumin, Blood 2.9 g/dL (3.4-5.0); Anion Gap 3 mmol/L (6-16); Blood Urea Nitrogen 49 mg/dL (8-24); Bun/Creatinine Ratio 65.5 (12.0-20.0); CO2, Blood 41 mmol/L (21-32); Calcium, Blood 8.3 mg/dL (8.5-10.1); Chloride, Blood 90 mmol/L (98-108); Creatinine, Blood 0.75 mg/dL (0.40-1.00); Glomerular Filtration Rate >60 (60-); Glucose, Blood 238 mg/dL (70-99); Phosphorus, Blood 2.1 mg/dL (2.5-4.9); Potassium, Blood 4.1 mmol/L (3.5-5.5); Sodium, Blood 134 mmol/L (136-145)
--- NOTE | 2018-11-07 06:16 | NUR ---
SHIFT SUMMARY PT REPORTS FEELING LESS SHORT OF BREATH OVERNIGHT IS CURRENTLY ON 6L HFNC WITH SATS OF 95%, A DECREASE OF 4L SINCE START OF SHIFT. PT REMAINS ALERT AND ORIENTED AND ABLE TO AMBULATE TO BEDSIDE COMMODE WITH 1-PERSON ASSIST. LUNG SOUNDS CLEAR THROUGHOUT WITH OCCASIONAL WHEEZES. WILL REPORT TO DAYSHIFT NURSE.
--- NOTE | 2018-11-07 10:00 | NUR ---
0700-ASSUMED CARE OF PATIENT. PT DENIES PAIN AT THIS TIME. PT ON 6LPM HI-FLOW NC. 0730-SEEN BY DR. CHUN. UPDATED HIM OF PT'S STATUS. PT CAN BE TRANSFERED TO MEDICAL FLOOR. [id number]-DAYAMI, PHYSICAL THERAPIST CAME BY TO WORK WITH PATIENT. PT IS CURRENTLY SITTING ON THE CHAIR.
--- NOTE | 2018-11-07 10:24 | NUR ---
REPORT GIVEN TO KENDY SMITH IN MEDICAL FLOOR. PT WILL BE TRANSFERED TO ROOM 346.
--- NOTE | 2018-11-07 11:38 | NUR ---
1035- WAS TRANSFERED TO ROOM [facility] AT THIS TIME.
--- NOTE | 2018-11-07 14:55 | NUR ---
SUMMARY ICU 2 TRANSFER TO [facility] APPROX 1100. SHE IS A/O X4. 1 ASSIST TO BSC/CHAIR. PLEASANT AFFECT. SHE STATE MILD SOB CONTINUES @ REST HOWEVER IMPROVED FROM PREVIOUS DAYS. LUNGS DECREASED T/O, BIOX 96% ON 6L VIA HIFLOW CANULA. NSR/TELE HR 80-90'S. ENCOURAGED USE OF FLUTTER & INCENTIVE SPIROMETER, SHE IS RECEPTIVE. DAUGHTER IN TO VISIT TODAY. RESPTHER ASSISTING WITH NEBS & O2 NEEDS. VSS.
--- NOTE | 2018-11-08 04:49 | NUR ---
VSS, AFEBRILE, A/O, PLEASANT AND COOPERATIVE. PT SLEPT SOME OVERNOC, FEWER EPISODES OF SOB/MILLER NOTED THIS SHIFT. PT'S LUNGS APPEAR TO BE IMPROVING. NO COMPLAINTS. WILL REPORT TO ON-COMING SHIFT.
[2018-11-08 05:19] LABS: BASOPHILS PERCENT AUTO 0 % (0-2); EOSINOPHILS PERCENT AUTO 0 % (0-6); Hematocrit 33.5 % (33.0-51.0); Hemoglobin 10.7 g/dL (11.5-16.0); IMMATURE GRAN ABSOLUTE AUTO 0.03 K/mm3 (0.00-0.10); IMMATURE GRAN PERCENT AUTO 0 % (0-1); LYMPHOCYTES ABSOLUTE AUTO 0.42 K/mm3 (0.84-5.20); LYMPHOCYTES PERCENT AUTO 4 % (21-46); MONOCYTES ABSOLUTE AUTO 0.43 K/mm3 (0.16-1.47); MONOCYTES PERCENT AUTO 4 % (4-13); Mean Corpuscular HGB 30.1 pg (26.0-34.0); Mean Corpuscular HGB Conc 31.9 g/dL (31.5-36.5); Mean Corpuscular Volume 94 fL (80-100); Mean Platelet Volume 11.7 fL (9.1-12.4); NEUTROPHILS ABSOLUTE AUTO 8.92 K/mm3 (1.96-9.15); NEUTROPHILS PERCENT AUTO 91 % (41-73); Platelet Count 270 K/mm3 (150-400); RDW Coefficient Variation 13.8 % (11.7-14.2); RDW Standard Deviation 47.9 fL (35.1-46.3); Red Blood Cell Count 3.56 M/mm3 (3.80-5.20)
[2018-11-08 06:04] LABS: Albumin, Blood 2.9 g/dL (3.4-5.0); Anion Gap 4 mmol/L (6-16); Blood Urea Nitrogen 47 mg/dL (8-24); Bun/Creatinine Ratio 58.1 (12.0-20.0); CO2, Blood 38 mmol/L (21-32); Calcium, Blood 8.3 mg/dL (8.5-10.1); Chloride, Blood 91 mmol/L (98-108); Creatinine, Blood 0.81 mg/dL (0.40-1.00); Glomerular Filtration Rate >60 (60-); Glucose, Blood 182 mg/dL (70-99); Phosphorus, Blood 2.8 mg/dL (2.5-4.9); Potassium, Blood 4.6 mmol/L (3.5-5.5); Sodium, Blood 133 mmol/L (136-145)
--- NOTE | 2018-11-08 16:35 | NUR ---
SUMMARY PT HAS BEEN A/O X4 T/O DAY, PLEASANT/COOPERATIVE AFFECT. SHE APPEARS WEAK/FATIGUED, FRAIL. SHE APPEARS SHORT OF BREATH @ X'S EVEN WHILE @ REST, STATE INCREASES WITH MINIMAL EXERTION SUCH TALKING & EATING. LUNGS DECREASED WITH RHONCHI BASES. RESPTHER PROVIDING NEBS TX'S & ASSISTING WITH O2 TITRATION. O2 @ 4-5L HIFLO W HUMIDIFIER, BIOX 90-95% DR MONTEIRO IN TO SEE HER THIS AFTERNOON, RE-ORDER CHEST CPT. CHANGE IV SOLUMEDROL TO ORAL PREDNISONE. TELE MX REPORT SR T/O DAY 70-90'S
--- NOTE | 2018-11-09 04:58 | NUR ---
SHIFT SUMMARY A/O, ABLE TO MAKE NEEDS KNOWN. COOPERATIVE WITH CARE. ANSWERS QUESTIONS APPROPRIATELY. NO C/O PAIN/DISCOMFORT. REMAINS ON 5L VIA HIGH FLOW NC. OCCASIONAL PRO/NON-PRODUCTIVE COUGH. RT REMAINS INVOLVED WITH CARE. VSS/AFEBRILE. NO ACUTE CHANGES NOTED OVERNIGHT. BED IN LOWEST POSITION. ALARM ON. CALL LIGHT AND BELONGINGS WITHIN REACH. WCTM. REPORT TO ONCOMING RN.
--- NOTE | 2018-11-09 17:31 | NUR ---
Initial Visit: Palliative Care Consult for Advanced Care Planning and AD/POLST. Pt is A&Ox4 and denies pain at this time. Pt is [place] during visit and becomes dyspneic as the visit progresses. Pt is known to this adjusto writer operator from previous visits. Engaged in therapeutic discussion regarding Advanced Care Planning. Pt still lives in a longterm facility in [place]. Listened as Pt expresses hopefullness of a full recovery. She states having stents placed recently and after procedure the Dr told her she may be able to wean off of oxygen. Educated Pt on CHF and COPD disease process. Encourged her to have discussions with PCP regarding her disease and treajectory in order to plan accordingly. Pt's level of understanding is questionable due to [place]. Pt reports her goal is to return back to her longterm facility and states that she does not want to be placed into a assisted. At this point in visit Pt's dyspnea is increasing and this RN ended visit. Spoke with Pt's bedside nurse Rebeca and she reports no concerns at this time. Plan: Will F/U with Pt regarding AD/POLST.
--- NOTE | 2018-11-09 18:45 | NUR ---
SHIFT SUMMARY- PT HAS HAD NO ACUTE CHANGES T/O THE SHIFT TODAY, NO C/O PAIN, MEDICATED PER EMAR WITH SCHEDULED MEDICATIONS NITRO CREAM DISCONTINUED THIS MORNING. PT UP TO THE BSC WITH SBA, SHE DOES NOT CALL UNTIL SHE IS MOVING TO THE BED FROM THE BSC, PT IS FAIRLY STABLE ON HER FEET. SPOKE TO BRICK AND TILE MAKING MACHINE OPERATOR ABOUT PT BEING APPROPRIATE FOR MAIN UNIT IF SCU BED IS NEEDED.
--- NOTE | 2018-11-10 05:23 | NUR ---
Rn summary: Patient is alert and oriented. She has rested very little this shift. Pt does get SOB with activity, Remains on 5 liters high flow O2 with O2 sats running 95%. Pt does use pursed lip breathing to assist with O2 recovery. Pt is [place], very sweet. Tele shows SR ar 60's with BBB and occ PVC's. No changes this shift. Uses call light appropriately.
--- NOTE | 2018-11-10 16:11 | NUR ---
Pt visit this afternoon. Pt denies pain at this time. She states feeling slightly better. She reports when she is sitting up her breathing improves. Educated Pt on the importance of sitting in the chair upright can improve SOB. Engaged in conversation regarding AD/POLST and Pt states she does not want to complete one. She reports her daughter knows what her wishes are. Discussed high risk readmission program and Pt reports interest. Pt reports no other concerns at this time. Spoke with Pt's bedside nurse Alida and she reports no concerns at this time. Palliative Care will remain available.
--- NOTE | 2018-11-10 19:43 | NUR ---
NO NOTEABLE CHANGES THIS SHIFT.
--- NOTE | 2018-11-11 05:18 | NUR ---
SHIFT SUMMARY PT HAS SLEPT WELL TONIGHT, NO ACUTE EVENTS NOTED. ALERT AND ORIENTED. WILL CONTINUE TO MONITOR.
--- NOTE | 2018-11-11 18:44 | NUR ---
PT. SITTING IN BED NO NOTICEABLE CHANGES THIS SHIFT.
[2018-11-12 05:08] LABS: BASOPHILS PERCENT AUTO 0 % (0-2); EOSINOPHILS ABSOLUTE AUTO 0.01 K/mm3 (0.00-0.68); EOSINOPHILS PERCENT AUTO 0 % (0-6); Hematocrit 34.3 % (33.0-51.0); Hemoglobin 10.9 g/dL (11.5-16.0); IMMATURE GRAN ABSOLUTE AUTO 0.03 K/mm3 (0.00-0.10); IMMATURE GRAN PERCENT AUTO 0 % (0-1); LYMPHOCYTES ABSOLUTE AUTO 0.91 K/mm3 (0.84-5.20); LYMPHOCYTES PERCENT AUTO 12 % (21-46); MONOCYTES ABSOLUTE AUTO 0.71 K/mm3 (0.16-1.47); MONOCYTES PERCENT AUTO 10 % (4-13); Mean Corpuscular HGB 30.2 pg (26.0-34.0); Mean Corpuscular HGB Conc 31.8 g/dL (31.5-36.5); Mean Corpuscular Volume 95 fL (80-100); Mean Platelet Volume 11.6 fL (9.1-12.4); NEUTROPHILS ABSOLUTE AUTO 5.85 K/mm3 (1.96-9.15); NEUTROPHILS PERCENT AUTO 78 % (41-73); Platelet Count 307 K/mm3 (150-400); RDW Standard Deviation 49.1 fL (35.1-46.3); Red Blood Cell Count 3.61 M/mm3 (3.80-5.20); White Blood Cell Count 7.51 K/mm3 (4.00-11.30)
[2018-11-12 05:39] LABS: Anion Gap 3 mmol/L (6-16); Blood Urea Nitrogen 33 mg/dL (8-24); Bun/Creatinine Ratio 44.4 (12.0-20.0); CO2, Blood 34 mmol/L (21-32); Calcium, Blood 8.4 mg/dL (8.5-10.1); Chloride, Blood 98 mmol/L (98-108); Creatinine, Blood 0.74 mg/dL (0.40-1.00); Glomerular Filtration Rate >60 (60-); Glucose, Blood 94 mg/dL (70-99); Sodium, Blood 135 mmol/L (136-145)
--- NOTE | 2018-11-12 05:52 | NUR ---
SHIFT SUMMARY PT SLEPT POORLY DURING THE NIGHT. REQUESTED TO HAVE HELP WASHING UP AGAIN THIS AM. OFFERS NO C/O'S. WILL CONTINUE TO MONITOR.
--- NOTE | 2018-11-12 17:05 | NUR ---
PATIENT A/OX4, UP WITH SBA TO BSC. SR WITH PAC'S ON TELE IN THE 80'S. VSS THIS SHIFT. SUPPOSITORY AND MIRALAX GIVEN FOR CONSTIPATION, TUMS AND PEPCID ORDERED FOR HEARTBURN. PATIENT DENIES ANY PAIN THIS SHIFT. LUNGS DIMINISHED THROUGHOUT, 3LO2 TO MAINTAIN SATS. PATIENT IS CALM AND COOPERATIVE WITH CARE, CALLS APPROPRIATELY FOR ASSISTANCE. NO ACUTE CHANGES THIS SHIFT.
--- NOTE | 2018-11-12 17:55 | NUR ---
PATIENT DID NOT WANT TO EAT DINNER THIS SHIFT. RN NOTIFIED.
--- NOTE | 2018-11-13 05:25 | NUR ---
SHIFT SUMMARY PT HAS SLEPT WELL DURING THE NIGHT, OFFERS NO C/O'S. NO ACUTE CHANGES NOTED, WILL CONTINUE TO MONITOR.
[2018-11-13] MEDS ORDERED: DULERA 200 MCG/13 GM INH (16:08)
[2018-11-13] MEDS ORDERED: ASPI81CH PO (16:11)
[2018-11-13] MEDS ORDERED: GUAI600T33 PO (16:12)
[2018-11-13] MEDS ORDERED: Metamucil Smooth1 EA PO (16:13)
[2018-11-13] MEDS ORDERED: Lopressor 25 mg25 MG PO (16:13)
--- NOTE | 2018-11-13 17:53 | NUR ---
PATIENT DISCHARGE: PATIENT DISCHARGED/ TRANSFERRED TO [facility] THIS SHIFT. MEDICATION RECONCILIATION COMPLETED; MED LIST FAXED TO [facility]. DISCHARGE EDUCATION COMPLETED WITH PATIENT AND FAMILY. PATIENT TRANSPORTED TO EXIT BY [facility] STAFF WITH WHEELCHAIR AT 1735. PATIENT DEPARTED [facility] VIA PRIVATE AUTO.
== END 2018-11-13 17:34 | disposition home or self-care (01) | DRG 291 ==
LOC: ER 22:13 → MEDS 22:14 → ER 11-01 02:04 → MEDS 11-01 02:10 → ICUE 11-05 16:23 → MEDS 11-07 10:35 → ENPENDDIS 11-13 16:48 → MEDS 11-13 17:34
PROVIDERS: Emergency Medicine; Hospitalist; Internal Medicine; Internal Medicine Critical Care Medicine; ADMIT Internal Medicine
DX: I11.0 Hypertensive heart disease with heart failure (principal); J96.21 Acute and chronic respiratory failure with hypoxia; G92 Toxic encephalopathy; J96.22 Acute and chronic respiratory failure with hypercapnia; J44.1 Chronic obstructive pulmonary disease with (acute) exacerbation; J98.11 Atelectasis; T17.590A Other foreign object in bronchus causing asphyxiation, initial encounter; Z51.5 Encounter for palliative care; I50.33 Acute on chronic diastolic (congestive) heart failure; I48.91 Unspecified atrial fibrillation; I25.10 Atherosclerotic heart disease of native coronary artery without angina pectoris; I25.5 Ischemic cardiomyopathy; R26.89 Other abnormalities of gait and mobility; Z99.81 Dependence on supplemental oxygen; Z95.5 Presence of coronary angioplasty implant and graft; Z86.73 Personal history of transient ischemic attack (TIA), and cerebral infarction without residual deficits; E03.9 Hypothyroidism, unspecified; E78.00 Pure hypercholesterolemia, unspecified; Z87.891 Personal history of nicotine dependence; E11.65 Type 2 diabetes mellitus with hyperglycemia
CPT/HCPCS: 31720; 36415; 36600; 71045; 71046; 71260; 80048; 80053; 80069; 82803; 83605; 83880; 84145; 84484; 85025; 85610; 85730; 87040; 87070; 87077; 87186; 87205; 93005; 93010; 94010; 94640; 94660; 94664; 94667; 94668; 94760; 94762; 96361; 96365; 96366; 96367; 96372; 96375; 97110; 97161; 97165; 97530; 97535; 98960; 99285-25; G0378; J0692; J1650; J1940; J1956; J2060; J2405; J2920; J2930; J7030; J7512; Q9967

== ENCOUNTER 2018-12-11 14:53 | Inpatient (IN) | payer MEDICARE, OTHER ==
[~2018-12-11] VITALS: Ht 157.5 cm; Wt 45.0 kg
[~2018-12-11 14:53] MED LIST changes: -ALBU3IS NEB; -ALBU90OI6 INH; -LEVSOD125 PO; -MULVITMIND PO; -Micro-K10 MEQ PO; -NITR.4SL SL; -TIOT18 INH
[2018-12-11] MEDS ORDERED: FURO20 PO (15:12)
[2018-12-11 15:47] LABS: BASOPHILS ABSOLUTE AUTO 0.05 K/mm3 (0.00-0.23); BASOPHILS PERCENT AUTO 1 % (0-2); EOSINOPHILS ABSOLUTE AUTO 0.04 K/mm3 (0.00-0.68); EOSINOPHILS PERCENT AUTO 0 % (0-6); Hematocrit 37.3 % (33.0-51.0); Hemoglobin 11.8 g/dL (11.5-16.0); IMMATURE GRAN ABSOLUTE AUTO 0.04 K/mm3 (0.00-0.10); IMMATURE GRAN PERCENT AUTO 0 % (0-1); LYMPHOCYTES ABSOLUTE AUTO 3.61 K/mm3 (0.84-5.20); LYMPHOCYTES PERCENT AUTO 36 % (21-46); MONOCYTES ABSOLUTE AUTO 0.87 K/mm3 (0.16-1.47); MONOCYTES PERCENT AUTO 9 % (4-13); Mean Corpuscular HGB 30.8 pg (26.0-34.0); Mean Corpuscular HGB Conc 31.6 g/dL (31.5-36.5); Mean Corpuscular Volume 97 fL (80-100); Mean Platelet Volume 10.3 fL (9.1-12.4); NEUTROPHILS ABSOLUTE AUTO 5.36 K/mm3 (1.96-9.15); NEUTROPHILS PERCENT AUTO 54 % (41-73); Platelet Count 430 K/mm3 (150-400); RDW Coefficient Variation 14.7 % (11.7-14.2); RDW Standard Deviation 52.9 fL (35.1-46.3); Red Blood Cell Count 3.83 M/mm3 (3.80-5.20); White Blood Cell Count 9.97 K/mm3 (4.00-11.30)
[2018-12-11 16:11] LABS: Alanine Aminotransfer (ALT/SGP 36 U/L (12-78); Albumin, Blood 3.4 g/dL (3.4-5.0); Albumin/Globulin Ratio 0.9 (0.8-1.8); Alk Phos 69 U/L (50-136); Anion Gap 4 mmol/L (6-16); Aspartate Aminotrans (AST/SGOT 30 U/L (12-37); Bilirubin, Total 0.6 mg/dL (0.1-1.0); Blood Urea Nitrogen 17 mg/dL (8-24); CO2, Blood 38 mmol/L (21-32); Calcium, Blood 8.8 mg/dL (8.5-10.1); Chloride, Blood 90 mmol/L (98-108); Creatinine, Blood 0.57 mg/dL (0.40-1.00); Globulin, Blood 3.8 g/dL (2.2-4.0); Glomerular Filtration Rate >60 (60-); Glucose, Blood 128 mg/dL (70-99); Potassium, Blood 3.8 mmol/L (3.5-5.5); Sodium, Blood 132 mmol/L (136-145); Total Protein, Blood 7.2 g/dL (6.4-8.2)
[2018-12-11 16:12] LABS: Troponin I <0.015 ng/mL (0.000-0.040)
--- NOTE | 2018-12-11 19:15 | NUR ---
ASSUMING CARE OF PT AT THIS TIME. PT REPORT RECEIVED AT BEDSIDE WITH OFFGOING NURSE, YOHANNES LARRY. PT LAYING IN BED, WATCHING TELEVISION UPON ENTERING THE ROOM. PT DOES NOT APPEAR TO BE IN DISTRESS AT THIS TIME. WILL REVIEW PLAN OF CARE.
--- NOTE | 2018-12-11 19:30 | NUR ---
ASSESSMENT PT A&O X4, OCC SLOW TO RESPOND, OTHERWISE TALKS AND ANSWERS QUESTIONS APPROPRIATELY, CALM, COOPERTIVE, SPONT OPENS EYES. SENSATION INTACT. DENIES N/T. PT SCHULTZ. NORMAL STRENGTH BUE'S. PT C/O SLIGHT WEAKNESS FROM BASELINE. 1P SBA AND WALKER WITH AMBULATION. PT ABLE TO REPOSITION SELF IN BED. PT DENIES PAIN/DISCOMFORT. NO S/SX OF PAIN/DISCOMFORT. LUNGS CLEAR, DIMINISHED LOWER LOBES. PT ON 6L NC. OXY SAT >90%. RR 18. DENIES SOB AT REST. DYSPNEA ON EXERTION. OCC NONPRODUCTIVE COUGH. AFEBRILE. NSR WITH OCC PVC'S PER PUBLIC HEALTH EDUCATOR. HR 80'S. BP STABLE - SEE VS FS. STRONG RADIAL PULSES. FAINT TIBIAL AND PEDAL PULSES. WARM, PINK SKIN. TRC EDEMA BLE'S. ACTIVE BT X4 QUADRANTS. ABD SOFT, NONTENDER, MILD DIST (PT STATES ABD DIST IS NORMAL). NO N/V. NO BM. PT TOLERATING PO FLUIDS AND DIET. NO BM. CLEAR, YELLOW URINE NOTED. 1P SBA TO BEDSIDE COMMODE FOR BATHROOM PRIVLEGES. PIV X1 - SL.
[2018-12-12] MEDS ORDERED: FLEET GLYCERIN PR (01:26)
[2018-12-12 04:19] LABS: Anion Gap 3 mmol/L (6-16); Blood Urea Nitrogen 18 mg/dL (8-24); Bun/Creatinine Ratio 28.3 (12.0-20.0); CO2, Blood 39 mmol/L (21-32); Chloride, Blood 90 mmol/L (98-108); Creatinine, Blood 0.64 mg/dL (0.40-1.00); Glomerular Filtration Rate >60 (60-); Glucose, Blood 210 mg/dL (70-99); Potassium, Blood 4.3 mmol/L (3.5-5.5); Sodium, Blood 132 mmol/L (136-145)
--- NOTE | 2018-12-12 04:38 | NUR ---
SHIFT ASSESSMENT NO ACUTE CHANGES NOTED T/O SHIFT. PT SLEPT T/O SHIFT. PT A&O X4, OCC SLOW TO RESPOND, OTHERWISE TALKS AND ANSWERS QUESTIONS APPROPRIATELY, CALM, COOPERATIVE, SPONT OPENS EYES. SENSATION INTACT. DENIES N/T. PT SCHULTZ. NORMAL STRENGTH BUE'S. PT C/O SLIGHT WEAKNESS FROM BASELINE IN BLE'S. WEAKNESS BLE'S. 1P SBA AND WALKER WITH AMBULATION. PT ABLE TO REPOSITION SELF IN BED. CONT TO REINFORCE PT TO TURN Q2 HR. PT DENIED PAIN/DISCOMFORT. NO S/SX OF PAIN/DISCOMFORT NOTED. LUNGS CLEAR, LOWER LOBES DIMINISHED. PT ON 4L NC. CONT TO TITRATE OXYGEN TO MAINTAIN SPO2 90% AND GREATER. RR 14 TO 18. DENIES SOB AT REST. DYSPNEA ON EXERTION. OCC NONPRODUCTIVE COUGH. AFEBRILE. NSR WITH OCC PVC'S PER PYTHON ENGINEER. HR 60'S TO 80'S. BP STABLE - SEE VS FS. STRONG RADIAL PULSES. FAINT TIBIAL AND PEDAL PULES. WARM, PINK SKIN. TRC EDEMA BLE'S. ACTIVE BT X4 QUADRATNS. ABD SOFT, NONTENDER, MILD DIST (PT STATES ABD DIST IS NORMAL). NO N/V. NO BM. PT TOLERATED PO FLUIDS AND DIET. CLEAR, YELLOW URINE. 1P SBA TO BEDSIDE COMMODE FOR BATHROOM PRIVELEGES. PIV X1 - SL. WILL CONT TO MONITOR PT AND WILL PROVIDE BEDSIDE REPORT TO ONCOMING NURSE THIS AM.
--- NOTE | 2018-12-12 07:53 | NUR ---
DR. BASILIO: PROVIDER AT BEDSIDE TO SEE PT. HIGH GLUCOSE READINGS HAVE BEEN DISCUSSED. A1C TO BE CHECKED. STATUS CHANGE TO MED W/ NO TELE. WILL CONTINUE TO MONITOR & UPDATE NEEDED.
--- NOTE | 2018-12-12 08:05 | NUR ---
ASSUMED CARE: REPORT RECEIVED FROM MEL Balderrama RN. ASSUMED CARE OF THIS PT AT APPROX 0700. ON ASSESSMENT, THE PT IS A&O, PLEASANT & COOPERATIVE. SHE HAS SPOKEN W/ DR. BASILIO THIS AM & DENIES FURTHER QUESTIONS. O2 TITRATED UP FROM 4-5 L/MIN FOR DECREAED O2 SATS, VSS OTHERWISE. PT DENIES PAIN OR DISCOMFORT THIS AM. WILL CONTINUE TO MONITOR & UPDATE NEEDED.
--- NOTE | 2018-12-12 18:30 | NUR ---
SHIFT SUMMARY: NO ACUTE CHANGES THIS SHIFT. PT A&O, PLEASANT & COOPERATIVE. SHE REMAINS WEAK W/ AMBULATION & IS TREMULOUS AT ALL TIMES. BED ALARM ON FOR UNSTEADY GAIT. SBA FOR TX OOB. LS ARE DIM T/O, PT ON 5L NC W/ O2 SATS > 88%. AT HOME PT USES 3-4L NC. TELE MONITOR SHOWS NSR, HR 70s. MONITOR REMOVED THIS SHIFT PT IS NOW MED NO TELE STATUS. BT x4, PT STS POOR APPETITE. REQUEST FOR METAMUCIL THIS EVENING R/T FEELING "BACKED UP." STS SHE TAKES METAMUCIL EVERY NIGHT AT HOME. SHE IS VOIDING W/O DIFFICULTY, USING BSC. DIURESING WELL, OUTPUT CHARTED. SKIN OVERALL CDI. CBG READINGS NOT REQUIRING INSULIN COVERAGE. WILL CONTINUE TO MONITOR & REPORT OFF TO ONCOMING RN.
--- NOTE | 2018-12-13 05:08 | NUR ---
END OF SHIFT SUMMARY PT HAS BEEN VRY COOPERATIVE THIS SHIFT. ALERT AND ORIENTED, TALKING WITH STAFF APPROPRIATELY. HAS BEEN UP TO BSC THIS SHIFT WITH LITTLE ASSIST. HAS CONTINUED TO DENY CP/PRESSURE. PT HAS REMAINED ON 5L NC02. PT STATES FEELING LESS SOB WITH EXERTION. PT HAS APPEARED TO HAVE SLEPT FOR MAJORITY OF SHIFT POST ASSESMENT/MEDICATIONS. USES CALL LIGHT APPROPRIATELY. CALL LIGHT WITHIN REACH. WILL CONTINUE TO MONITOR PT UNTIL SHIFT CHANGE.
--- NOTE | 2018-12-13 11:17 | NUR ---
TRANSFER TO 330 PT REPORT CALLED TO THIRD FLOOR. PT AWARE OF TRANSFER BY W/C WITH O2. CONTINUE POT.
--- NOTE | 2018-12-13 19:37 | NUR ---
SHIFT SUMMARY: PATIENT TRANSFER FROM [facility] THIS SHIFT. PT A&O; CALM AND COOPERATIVE WITH CARE. NO C/O PAIN SINCE ARRIVAL ON MEDICAL. PT USES 2-3L O2 AT HOME, ON 5L TO MAINTAIN SATS 95%. BILATERAL PLEURAL EFFUSIONS; RLL FINE CRACKLES; DIURETICS CONTINUING; RT FOLLOWING. REPORT GIVEN TO ONCOMING RN.
--- NOTE | 2018-12-14 07:42 | NUR ---
12/14/18 0600 VITALS STABLE. UNEVENTFUL NIGHT. O2 AT 4LPM VIA N/C. STATES SHE FEELS SLIGHTLY BETTER THIS AM.
--- NOTE | 2018-12-14 07:55 | NUR ---
PATIENT PULSE RUNNING BETWEEN 39-70. PATIENT ASYMPTOMATIC SITTING UP IN BED. DR RUSSO NOTIFIED. TELE ORDER PLACED. BOWLING PIN SETTERS INSTALLER SALLY NOTIFIED.
[2018-12-14 09:20] LABS: Anion Gap 4 mmol/L (6-16); Blood Urea Nitrogen 26 mg/dL (8-24); CO2, Blood 40 mmol/L (21-32); Calcium, Blood 8.3 mg/dL (8.5-10.1); Chloride, Blood 88 mmol/L (98-108); Creatinine, Blood 0.67 mg/dL (0.40-1.00); Glomerular Filtration Rate >60 (60-); Glucose, Blood 180 mg/dL (70-99); Sodium, Blood 132 mmol/L (136-145)
--- NOTE | 2018-12-14 11:50 | NUR ---
Patient is sitting up in bed and alert. Patient openly shares about her efren, her family and her medical history. Patient is pleasant and kind. Patient states that she is abit discouraged because of the one step forward two steps back feeling she has about her health. I listen empathically, facilitate a life review, explore zoroastrian beliefs, provide emotional support and provide prayer. Patient responded well and displayed evidence of restored efren and hope.
--- NOTE | 2018-12-14 16:44 | NUR ---
SHIFT SUMMARY PATIENT A&O X4, SBA TO BATHROOM. DENIES ANY PAIN OR NAUSEA. C/O SOB WITH ACTIVITY. O2 @ 4L NC. RN MEDICATED PER E MAR THROUGHOUT THE SHIFT. NO ACUTE CHANGES. CALL LIGHT IS WITHIN REACH, BED IN LOWEST POSITION. WILL CONTINUE TO MONITOR.
--- NOTE | 2018-12-15 05:34 | NUR ---
12/15/18 0600 AWAKENED FOR MED. VITALS STABLE. UNEVENTFUL NIGHT. STATES SHE SLEPT BETTER LAST NIGHT.
--- NOTE | 2018-12-15 13:25 | NUR ---
Patient is sitting up in bed and alert. Patient mentions that although she has a strong efren she continues to struggle with feeling discouraged. I again eplore what inspires and encourages her. SHe mentioned that she prays and that she reherses the things she has overcome in the past. So, I have her tell me some examples of what she has overcome. I also remind her of what her efren tells her God is like in difficult times. I also provide prayer. Patient responds well and shows signs of renewed hope and expectency.
--- NOTE | 2018-12-15 16:49 | NUR ---
Pal Spiritual Care initial visit: Mrs. Guerra is known to me from numerous hospitalizations. She admits she is fearful of continued decline and . She has refused rehab for strengthening in the past b/c she "knows what I need to do and can do it at home." She tells me that she will continue to refuse rehab for this reason. She appears genuinely bewildered that she continues to decline. She is tired of hospitalizations. She reports a lifelong efren, but admits that sometimes her fears overwhelm her. She responds well to gentle deputy chief counsel and prayer, and has a good rapport with Yarn Inspectoroswald Zheng. For this reason, I will pass Mrs. Guerra's palliative spiritual care to the capable hands of Chaplain Zheng.
--- NOTE | 2018-12-15 16:59 | NUR ---
SHIFT SUMMARY. A&OX4, SBA TO BSC, PT CALLS APPROPRIATELY, NO SAFETY CONCERNS. PT CONTINUES TO REQUIRE 4L O2 NC, PT REQUIRED 5L O2 TO RECOVER AFTER WORKING WITH PHYSICAL THERAPY TODAY, PT DID RECOVER AND O2 WAS TURNED DOWN TO 4L O2 NC. NO N/V OR PAIN REPORTED. NO OTHER CHANGES.
--- NOTE | 2018-12-16 03:29 | NUR ---
SHIFT SUMMARY PT ADMITTED FOR SOB. FULL CODE. CARDIAC DIET. TELE-NSR WITH PAC AT A RATE OF 72 PER BENCH SCIENTIST. CBG AT AC AND HS. LOVENOX FOR DVT PROPHYLAXIS. 4L O2 VIA NC. 20 G IV TO L HAND. TAKES MEDICATIONS WHOLE. 1 PERSON TO SBA WITH TRANSFERS TO BSC. PT LIVES ALONE. bILATERAL PLEURAL EFFUSIONS. THE PT PRESENTED WITH C/O SOB WITH A HX OF COPD AND XYGEN DEPENDENT ON 4L O2 VIA NC WITH BASELINE DOSE AT 3-4 L. THE PT CALLED EMS WHO REPORTED O2 SATS AT 78% IN THE FIELD. THE PT NOTED TO HAVE ACUTE ON CHRONIC DIASTOLIC HEART FAILURE WITH WEIGHT GAIN, ELEVATED BNP AND EFFUSION NOTED ON CHEST X-RAY. IT IS NOTED THAT THE PTS DIFFICULTY BREATHING IS MORE LIKELY RELATED TO CHG THEN COPD PER REPORT. THE PT DID REPORT TO THIS NURSE HAVING INCREASED DIFFICULTY BREATHING AND STATED THAT SHE WAS TIRED OF IT BEING SO HARD TO BREATH. CALL TO RT WHO STATED THAT THE PT HAD JUST RECIEVED A BREATHING TREATMENT BUT THAT THEY WOULD COME AND CHECK ON PT STATUS. THE PT HAS APPEARED TO SLEEP COMFORTABLY MOST OF THE NIGHT BUT UP AT THIS TIME TO USE THE BSC. NO APPARENT SIGNS OF ACUTE DISTRESS. ABLE TO MAKE NEEDS KNOWN AND CALL LIGHT IN REACH.
[2018-12-16 09:50] LABS: Anion Gap 4 mmol/L (6-16); Blood Urea Nitrogen 24 mg/dL (8-24); Bun/Creatinine Ratio 37.9 (12.0-20.0); CO2, Blood 35 mmol/L (21-32); Calcium, Blood 8.4 mg/dL (8.5-10.1); Chloride, Blood 90 mmol/L (98-108); Creatinine, Blood 0.63 mg/dL (0.40-1.00); Glomerular Filtration Rate >60 (60-); Glucose, Blood 170 mg/dL (70-99); Potassium, Blood 4.3 mmol/L (3.5-5.5); Sodium, Blood 129 mmol/L (136-145)
--- NOTE | 2018-12-16 17:27 | NUR ---
NOTIFIED DR. RUSSO PT REQUESTING TO BE MADE DNR. NOTIFIED DR. RUSSO GI WILL BE COMING IN TOMORROW AM. DR. RUSSO SAID TO MAKE PT CLEAR LIQUID DIET AND THEN NPO AFTER MIDNIGHT FOR POSSIBLE PROCEDURE TOMMORROW. DR. RUSSO SAID OK TO CHANGE IV ZOFRAN TO Q4H PRN. DR. RUSSO SAID TO ORDER NORMAL SALINE AT 75ML/HR. NO OTHER NEW ORDERS AT THIS TIME.
--- NOTE | 2018-12-16 19:01 | NUR ---
SHIFT SUMMARY- PT DENIES PAIN. REPORTS DYSPNEA UPON EXERTION. 94% ON 3.5L O2 NC. DENIES N/V. 1 ASSIST TO BSC. NSR WITH PAC'S AND PVC'S AT 64 PER PCU TRACK SERVICE WORKER. NO OTHER SIGNIFICANT CHANGES THIS SHIFT.
--- NOTE | 2018-12-16 19:05 | NUR ---
Initial Visit: Palliative Care Consult for Cardiac, Medically Fragile, and Readmission. Pt is known to this marketing underwriter from previous visits. Pt is A&O and denies pain at this time. Pt reports mild dyspnea at rest and worsens with speaking and exertion. Pt denies anxiety at this time but states experiencing anxiety with worsening dyspnea. During visit Pt does experience mild anxiety briefly. Engaged in therapeutic conversation regarding goals of care. Pt reports that she sill lives in a care home facility in [place]. She expresses concerns regarding losing her normal transportation to get back and forth to doctor appointments. She also expresses concerns regarding the need for someone to accompany her with doctor appointments. Suggested family members such as Pt's brother or daughter. Pt reports her brother is currently in the hospital and her daughter has a busy life and would not have the time. She states her son in law has health issues of his own. Instructed Pt this RN will relay concerns regarding transportation with home health care case manager. Engaged in therapeutic discussion regarding disease process. Assessed Pt's understanding of disease process. Pt states that she is under the impression that her heart condition will improve. Educated Pt on disease process including trajectory. Attempted discussion of the need to plan for the future as the disease process takes it's coarse and Pt became defensive and states "This is brought up every time I come to the hospital". Pt states that she would like to focus on the things that she can do to improve her condition. Suggested to comply with doctor recommendations and to continue with the high risk readmission program. Pt states she will comply with recommendations and is interested in continued participation of high risk program. Listened as Pt expresses thoughts of continuing with participating with her denominational. Encouraged Pt to pursue this and educated on the importance of community, friendship, and efren. Pt reports no other concerns. Spoke with Pt's bedside nurse Herman and she reports no concerns at this time. Plan: Will discuss concerns with care manger regarding transportation. Placed referral of COPD education for high risk readmission program. Palliative Care will remain available.
--- NOTE | 2018-12-17 03:37 | NUR ---
SHIFT SUMMARY NO APPARENT ACUTE CHANGES NOTED SO FAR THIS SHIFT. THE PT STATED THAT SHE IS FEELING MUCH BETTER THEN PREVIOUS DAY. PT IS VERY PLEASENT AND COOPERATIVE. HAS APPEARED TO SLEEP COMFORTABLY MOST OF THE NIGHT WITH NO APPARENT SIGNS OF ACUTE DISTRESS. ABLE TO MAKE NEEDS KNOWN, USES CALL LIGHT APPROPRIATELY, BED ALARM FOR SAFETY, CALL LIGHT IN REACH.
[2018-12-17 05:45] LABS: Anion Gap 2 mmol/L (6-16); Blood Urea Nitrogen 25 mg/dL (8-24); Bun/Creatinine Ratio 32.9 (12.0-20.0); CO2, Blood 35 mmol/L (21-32); Calcium, Blood 8.6 mg/dL (8.5-10.1); Chloride, Blood 91 mmol/L (98-108); Creatinine, Blood 0.76 mg/dL (0.40-1.00); Glomerular Filtration Rate >60 (60-); Glucose, Blood 103 mg/dL (70-99); Potassium, Blood 5.1 mmol/L (3.5-5.5); Sodium, Blood 128 mmol/L (136-145)
--- NOTE | 2018-12-17 17:19 | NUR ---
SHIFT SUMMARY PATIENT A&O X4. SBA TO THE BATHROOM. DENIES ANY PAIN OR NAUSEA THIS SHIFT. DENIES SOB AT REST, IS SOB W/ EXERTION. O2 @ 4L NC. PATIENT RESTED IN BED THROUGHOUT THE SHIFT. UP TO THE CHAIR FOR LUNCH. NO ACUTE CHANGES THIS SHIFT. RN WILL CONTINUE TO MONITOR.
--- NOTE | 2018-12-18 04:33 | NUR ---
DEPARTMENT CLERK SUMMARY NO ACUTE CHANGES THIS SHIFT. PT AAOX4 AND COOPERATIVE WITH CARE. REMAINS OF 4L O2 VIA NC WHICH IS HOME RATE. PT DENIES SOB AT REST BUT DOES EXPERIENCE SOME SOB WITH AMBULATION. DENIES PAIN, N/V. VSS, WILL CONTINUE TO MONITOR.
[2018-12-18 08:35] LABS: Anion Gap 3 mmol/L (6-16); Blood Urea Nitrogen 25 mg/dL (8-24); Bun/Creatinine Ratio 39.6 (12.0-20.0); CO2, Blood 34 mmol/L (21-32); Calcium, Blood 8.6 mg/dL (8.5-10.1); Chloride, Blood 93 mmol/L (98-108); Creatinine, Blood 0.63 mg/dL (0.40-1.00); Glomerular Filtration Rate >60 (60-); Glucose, Blood 101 mg/dL (70-99); Potassium, Blood 4.4 mmol/L (3.5-5.5); Sodium, Blood 130 mmol/L (136-145)
--- NOTE | 2018-12-18 16:42 | NUR ---
PATIENT A/OX4, UP WITH SBA TO RESTROOM. PATIENT LIVES ALONE AND CURRENTLY HAS [employer] SYSTEMS. PLANS TO D/C HOME WHEN STABLE. 20G IV TO L HAND WNL AND SL. PATIENT TOLERATING ADA DIET. ACHS BLOOD SUGARS, NO COVERAGE NEEDED THIS SHIFT. PATIENT DENIES ANY PAIN. LUNGS DIMINISHED THROUGHOUT. 4LO2 HERE AND AT BASELINE TO MAINTAIN SATS. DYSPNEA WITH EXERTION. CALM AND COOPERATIVE WITH CARE, CALLS APPROPRIATELY FOR ASSISTANCE.
--- NOTE | 2018-12-19 05:43 | NUR ---
SEED TECHNICIAN SUMMARY NO ACUTE CHANGES THIS SHIFT. PT AAOX4 AND PLEASANT. 1 ASSIST TO BSC. DENIES SOB AT REST. ON 4L O2 VIA NC. PT RESTING THROUGHOUT SHIFT WITHOUT COMPLAINT. VSS, WILL CONTINUE TO MONITOR.
--- NOTE | 2018-12-19 16:48 | NUR ---
NO ACUTE CHANGES THIS SHIFT. PATIENT REMAINS ON 4LO2 VIA NC, LUNGS DIMINISHED THROUGHOUT. DYSPNEIC ON EXERTION. A/OX4, UP INDEPENDENTLY TO RESTROOM. TOLERATING ADA DIET, ACHS BLOOD SUGARS, NO COVERAGE NEEDED THIS SHIFT. 20G IV TO L HAND WNL AND SL. WORKED WITH PT TODAY. PLAN IS TO GO HOME WITH HOME HEALTH WHEN STABLE SOON TOMORROW.
[2018-12-20 05:19] LABS: Anion Gap 3 mmol/L (6-16); Blood Urea Nitrogen 27 mg/dL (8-24); Bun/Creatinine Ratio 47.7 (12.0-20.0); CO2, Blood 34 mmol/L (21-32); Calcium, Blood 8.7 mg/dL (8.5-10.1); Chloride, Blood 93 mmol/L (98-108); Creatinine, Blood 0.57 mg/dL (0.40-1.00); Glomerular Filtration Rate >60 (60-); Glucose, Blood 103 mg/dL (70-99); Magnesium, Blood 2.1 mg/dL (1.6-2.4); Potassium, Blood 5.1 mmol/L (3.5-5.5); Sodium, Blood 130 mmol/L (136-145)
--- NOTE | 2018-12-20 06:36 | NUR ---
SHIFT SUMMARY PT IS AN 83 Y/O FEMALE, ADMITTED WITH SOB. SHE IS A&O X 4, AND INDEPENDENT IN THE ROOM. NO COMPLAINTS OF PAIN OR NAUSEA, WITH SOME DYSPNEA WITH EXERTION. PT IS ON 4L OF O2 THROUGH THE NIGHT. VITALS REMAINED STABLE. NO ACUTE CHANGED IN PT CONDITION NOTED. WILL CONTINUE TO MONITOR AND TREAT PER EMAR UNTIL HAND OFF TO DAY SHIFT.
--- NOTE | 2018-12-20 14:25 | NUR ---
PATIENT D/C'D TO HOME WITH FRIEND. RX MEDICATIONS FAXED TO PHARMACY. D/C INSTRUCTIONS AND EDUCATION DISCUSSED WITH PATIENT AND FRIEND GIANA AND COPY PROVIDED. PATIENT DENIES ANY FURTHER QUESTIONS OR CONCERNS. PATIENT AL[facility]Y [facility] WITH [facility] AND WOULD LIKE TO RESUME.
== END 2018-12-20 14:33 | disposition home health service (06) | DRG 291 ==
LOC: ER 14:53 → MEDS 17:02 → PCU 17:02 → MEDS 12-13 11:43 → ENPENDDIS 12-20 12:30 → MEDS 12-20 14:33
PROVIDERS: Internal Medicine; ADMIT Internal Medicine
DX: I11.0 Hypertensive heart disease with heart failure (principal); J96.21 Acute and chronic respiratory failure with hypoxia; E87.1 Hypo-osmolality and hyponatremia; I50.43 Acute on chronic combined systolic (congestive) and diastolic (congestive) heart failure; J44.9 Chronic obstructive pulmonary disease, unspecified; I25.10 Atherosclerotic heart disease of native coronary artery without angina pectoris; E03.9 Hypothyroidism, unspecified; I48.0 Paroxysmal atrial fibrillation; Z87.891 Personal history of nicotine dependence; Z99.81 Dependence on supplemental oxygen; Z95.5 Presence of coronary angioplasty implant and graft; Z86.73 Personal history of transient ischemic attack (TIA), and cerebral infarction without residual deficits; E78.00 Pure hypercholesterolemia, unspecified; I25.5 Ischemic cardiomyopathy; I27.20 Pulmonary hypertension, unspecified
CPT/HCPCS: 36415; 71046; 80048; 80053; 82947; 83036; 83735; 83880; 84443; 84484; 85025; 93005; 93010; 94640; 94760; 96374; 96375; 96376; 97110; 97162; 97530; 99285-25; A9270; J1650; J1940; J2930

== ENCOUNTER → 2019-01-06 | Outpatient (CLI) | payer MEDICARE, OTHER ==
[~2019-01-06] MED LIST changes: +ALBU3IS NEB; +ALBU90OI6 INH; +ASPERCREME1 EACH TOP; +ASPI81CH PO; +ATORVASTATIN CA80 MG PO; +Amiodarone HCl200 MG; +CARV3.125 PO; +DOCU100 PO; +ELIQUIS5 MG PO; +FLEET GLYCERIN PR; +FURO40 PO; +Fruity C250 MG PO; +GUAI600T33 PO; +LEVSOD125 PO; +LISI5 PO; +Lipitor80 MG PO; +Metamucil Smooth1 EA PO; +Micro-K10 MEQ PO; +NITR.4SL SL; +PANTOPRAZOLE SO40 M1 PO; +POTA10T; +PRED20; +SPIR25 PO; +THERA1 EACH PO; +TIOT18 INH; +TORSE20 PO; +Vitamin E400 UNI4
[2019-01-06 15:29] LABS: Anion Gap 5 mmol/L (6-16); Blood Urea Nitrogen 21 mg/dL (8-24); Bun/Creatinine Ratio 33.4 (12.0-20.0); CO2, Blood 32 mmol/L (21-32); Calcium, Blood 8.4 mg/dL (8.5-10.1); Chloride, Blood 100 mmol/L (98-108); Creatinine, Blood 0.63 mg/dL (0.40-1.00); Glomerular Filtration Rate >60 (60-); Glucose, Blood 142 mg/dL (70-99); Potassium, Blood 4.3 mmol/L (3.5-5.5); Sodium, Blood 137 mmol/L (136-145)
== END | disposition home or self-care (01) ==
LOC: LAB HH 12:20
PROVIDERS: Internal Medicine
DX: I11.0 Hypertensive heart disease with heart failure (principal); I50.33 Acute on chronic diastolic (congestive) heart failure
CPT/HCPCS: 80048

== ENCOUNTER 2019-01-21 10:20 | Inpatient (IN) | payer MEDICARE, OTHER ==
[~2019-01-21] VITALS: Ht 157.5 cm; Wt 43.8 kg
[~2019-01-21 10:20] MED LIST changes: -ALBU3IS NEB; -ALBU90OI6 INH; -ASPERCREME1 EACH TOP; -ASPI81CH PO; -ATORVASTATIN CA80 MG PO; -Amiodarone HCl200 MG; -CARV3.125 PO; -DOCU100 PO; -ELIQUIS5 MG PO; -FURO40 PO; -Fruity C250 MG PO; -GUAI600T33 PO; -LEVSOD125 PO; -LISI5 PO; -Lipitor80 MG PO; -Metamucil Smooth1 EA PO; -Micro-K10 MEQ PO; -NITR.4SL SL; -PANTOPRAZOLE SO40 M1 PO; -POTA10T; -PRED20; -SPIR25 PO; -THERA1 EACH PO; -TIOT18 INH; -TORSE20 PO; -Vitamin E400 UNI4
[2019-01-21 11:30] LABS: BASOPHILS ABSOLUTE AUTO 0.04 K/mm3 (0.00-0.23); BASOPHILS PERCENT AUTO 0 % (0-2); EOSINOPHILS ABSOLUTE AUTO 0.09 K/mm3 (0.00-0.68); EOSINOPHILS PERCENT AUTO 1 % (0-6); Hematocrit 36.7 % (33.0-51.0); Hemoglobin 11.5 g/dL (11.5-16.0); IMMATURE GRAN ABSOLUTE AUTO 0.06 K/mm3 (0.00-0.10); IMMATURE GRAN PERCENT AUTO 1 % (0-1); LYMPHOCYTES ABSOLUTE AUTO 2.37 K/mm3 (0.84-5.20); LYMPHOCYTES PERCENT AUTO 18 % (21-46); MONOCYTES ABSOLUTE AUTO 0.66 K/mm3 (0.16-1.47); MONOCYTES PERCENT AUTO 5 % (4-13); Mean Corpuscular HGB Conc 31.3 g/dL (31.5-36.5); Mean Corpuscular Volume 96 fL (80-100); Mean Platelet Volume 11.8 fL (9.1-12.4); NEUTROPHILS ABSOLUTE AUTO 9.68 K/mm3 (1.96-9.15); NEUTROPHILS PERCENT AUTO 75 % (41-73); Platelet Count 269 K/mm3 (150-400); RDW Coefficient Variation 13.8 % (11.7-14.2); RDW Standard Deviation 49.1 fL (35.1-46.3); Red Blood Cell Count 3.83 M/mm3 (3.80-5.20)
[2019-01-21 11:54] LABS: Alanine Aminotransfer (ALT/SGP 24 U/L (12-78); Albumin, Blood 3.3 g/dL (3.4-5.0); Albumin/Globulin Ratio 0.9 (0.8-1.8); Alk Phos 49 U/L (50-136); Anion Gap 4 mmol/L (6-16); Aspartate Aminotrans (AST/SGOT 22 U/L (12-37); Bilirubin, Total 0.3 mg/dL (0.1-1.0); Blood Urea Nitrogen 26 mg/dL (8-24); Bun/Creatinine Ratio 30.1 (12.0-20.0); CO2, Blood 35 mmol/L (21-32); Calcium, Blood 9.1 mg/dL (8.5-10.1); Chloride, Blood 103 mmol/L (98-108); Creatinine, Blood 0.87 mg/dL (0.40-1.00); Globulin, Blood 3.5 g/dL (2.2-4.0); Glomerular Filtration Rate >60 (60-); Glucose, Blood 151 mg/dL (70-99); Potassium, Blood 3.9 mmol/L (3.5-5.5); Sodium, Blood 142 mmol/L (136-145); Total Protein, Blood 6.8 g/dL (6.4-8.2)
[2019-01-21] MEDS ORDERED: ALBU90OI6 INH (13:18)
[2019-01-21] MEDS ORDERED: LEVSOD125 PO (13:18)
[2019-01-21] MEDS ORDERED: Micro-K10 MEQ PO (13:18)
[2019-01-21] MEDS ORDERED: CLOP75 PO (13:18)
[2019-01-21] MEDS ORDERED: CARV3.125 PO (13:18)
[2019-01-21] MEDS ORDERED: NITR.4SL SL (13:18)
[2019-01-21] MEDS ORDERED: SPIR25 PO (13:19)
[2019-01-21] MEDS ORDERED: LISI5 PO (13:19)
[2019-01-21] MEDS ORDERED: FURO40 PO (13:19)
[2019-01-21] MEDS ORDERED: DILT180 PO (13:20)
[2019-01-21] MEDS ORDERED: PANTOPRAZOLE SO40 M1 PO (13:21)
[2019-01-21] MEDS ORDERED: ATORVASTATIN CA80 MG PO (13:21)
[2019-01-21] MEDS ORDERED: ASPI81CH PO (13:27)
[2019-01-21] MEDS ORDERED: THERA1 EACH PO (13:27)
[2019-01-21] MEDS ORDERED: TIOT18 INH (13:28)
[2019-01-21] MEDS ORDERED: DULERA 200 MCG/13 GM INH (13:30)
[2019-01-21] MEDS ORDERED: ALBU3IS NEB (13:30)
[2019-01-21] MEDS ORDERED: GUAI600T33 PO (14:36)
[2019-01-21] MEDS ORDERED: Metamucil Smooth1 EA PO (14:37)
--- NOTE | 2019-01-21 18:53 | NUR ---
Pal Spiritual Care initial note: Met with Ms. Reed after rapid response. She was alone in room and welcoming of encouragement and prayer. She lives alone and sees no problems continuing to do so. She does appear very frail and weak. She is also quite pale. I can't help but wonder how she is managing on her own. She has been hospitalized monthly since September, and I have noticed a decline. Regardless, she says she beleives she will get better. We prayed together for healing. Legal Document Specialist services will remain available.
--- NOTE | 2019-01-21 19:51 | NUR ---
PT ARRIVED TO THE MEDICAL FLOOR FROM THE ER AROUND 1400, A/OX3, PLEASANT AND COOPERATIVE, THE PT WAS ASSISTED TO THE BATHROOM AT THAT TIME, SOB WITH ACTIVITY, TREMULOUS, O2 ON AT THAT TIME AT 3L/MIN, THE PT WAS ORIENTED TO THE ROOM LAYOUT AND CALL SYSTEM, CALL LIGHT IN REACH, AT AROND 1830 THE PT WAS ASSITED AGAIN UP TO THE BATHROOM BY THE CDL B DRIVER, THIS TIME THE PT HAD A SYNCOPAL INCIDENT IN WHICH SHE CONVULSED AND VOMITED PER THE CDL B DRIVER, A RAPID RESPONCE WAS CALLED, DR. STUART;SON WAS CALLED AND THE PT WAS GIVEN A 500 CC BLOUS, AND TROPONIN i WAS ORDERED, THE PT IS VERY PALE IN COLOR, THE PT O2 SATS DROPPED AND HER O2 WAS TURNED UP TO 5L/MIN, REPORT WAS GIVEN TO NOC NURSE
[2019-01-22 04:13] LABS: BASOPHILS ABSOLUTE AUTO 0.04 K/mm3 (0.00-0.23); BASOPHILS PERCENT AUTO 0 % (0-2); EOSINOPHILS ABSOLUTE AUTO 0.04 K/mm3 (0.00-0.68); EOSINOPHILS PERCENT AUTO 0 % (0-6); Hematocrit 31.9 % (33.0-51.0); IMMATURE GRAN ABSOLUTE AUTO 0.02 K/mm3 (0.00-0.10); IMMATURE GRAN PERCENT AUTO 0 % (0-1); LYMPHOCYTES ABSOLUTE AUTO 2.96 K/mm3 (0.84-5.20); LYMPHOCYTES PERCENT AUTO 31 % (21-46); MONOCYTES ABSOLUTE AUTO 0.74 K/mm3 (0.16-1.47); MONOCYTES PERCENT AUTO 8 % (4-13); Mean Corpuscular HGB 29.7 pg (26.0-34.0); Mean Corpuscular HGB Conc 31.3 g/dL (31.5-36.5); Mean Corpuscular Volume 95 fL (80-100); Mean Platelet Volume 12.6 fL (9.1-12.4); NEUTROPHILS ABSOLUTE AUTO 5.71 K/mm3 (1.96-9.15); NEUTROPHILS PERCENT AUTO 60 % (41-73); Platelet Count 224 K/mm3 (150-400); RDW Coefficient Variation 13.7 % (11.7-14.2); RDW Standard Deviation 47.4 fL (35.1-46.3); Red Blood Cell Count 3.37 M/mm3 (3.80-5.20); White Blood Cell Count 9.51 K/mm3 (4.00-11.30)
[2019-01-22 04:38] LABS: Magnesium, Blood 1.7 mg/dL (1.6-2.4)
[2019-01-22 04:46] LABS: Alanine Aminotransfer (ALT/SGP 18 U/L (12-78); Alk Phos 41 U/L (50-136); Anion Gap 8 mmol/L (6-16); Aspartate Aminotrans (AST/SGOT 19 U/L (12-37); Bilirubin, Total 0.4 mg/dL (0.1-1.0); Blood Urea Nitrogen 27 mg/dL (8-24); Bun/Creatinine Ratio 30.2 (12.0-20.0); CO2, Blood 30 mmol/L (21-32); Calcium, Blood 8.7 mg/dL (8.5-10.1); Chloride, Blood 103 mmol/L (98-108); Creatinine, Blood 0.89 mg/dL (0.40-1.00); Globulin, Blood 2.9 g/dL (2.2-4.0); Glomerular Filtration Rate >60 (60-); Glucose, Blood 133 mg/dL (70-99); Potassium, Blood 3.3 mmol/L (3.5-5.5); Sodium, Blood 141 mmol/L (136-145); Total Protein, Blood 5.9 g/dL (6.4-8.2)
--- NOTE | 2019-01-22 11:59 | NUR ---
LAB CALLED THIS NURSE TO REPORT CRITICAL LAB RESULT OF TROPONIN OF 1.90. RESULT WAS CALL ED TO DR ALLEN WITH NO NEW ORDERS RECEIVED. PT IS RESTING IN BED WITH NO S/S OF DISTRESS.
--- NOTE | 2019-01-22 14:56 | NUR ---
Patient is sitting up in bed and alert. Patient is kind and likes to talk far more than her COPD will allow. Patient told me the story of her life beginning at but did a wonderful job of capturing the highlights and lowlights. I asked patient how she has been able to get through the troubling times and this launched patient into her favorite subject which is her efren in God. PAtient got very excited and her oxygen alarm started going off as she dipped below 85. I would stop patient and have her take slow deep breaths but as soon as she started agian she would dip below 87. I had to slow her down and even switch topics because she just bubbles with lan and enthusiasm when talking about God and the experiences she has had while praying or even doing everyday tasks. Patient encouraged herself with very little coaching from me. I conducted a life review, explored patient's cheondoism background ([employer]), and provided emotional support and prayer. Patient responded well and showed signs of having an uplifted spirit.
--- NOTE | 2019-01-22 17:56 | NUR ---
SHIFT SUMMARY: PT HAS BEEN A/O X 4 THIS SHIFT WITH NO C/O PAIN. V/S WNL AND NO S/S OF DISTRESS BUT SHE DOES CONTINUE WITH DYSPNEA ON EXERTION. PT REQUESTED TO CLEAN HERSELF UP AND WAS GIVEN A BASIN WITH WARM WATER AND TOWELS. CRITICAL LAB VALUE WAS CALLED IN TO DR ALLEN WHO GAVE NO NEW ORDERS AT THAT TIME AND PT REMAINED STABLE. PT HAS BEEN RESTING IN BED AND USES CALL LIGHT FOR HELP WHEN NEEDED.
--- NOTE | 2019-01-23 06:01 | NUR ---
SHIFT SUMMARY PT HAS INCREASED SOB WITH EXERTION. PT CONTINUES TO NEED ASSISTANCE TO AND FROM BATHROOM. PT HAD TWO CRITICAL TROPOIN LABS SO FAR. PT HAD DIFFICULTY SLEEPING DUE TO UNABLE TO GET COMFORTABLE. PT DENIES ANY CX PAIN OR INCREASED SOB. PT HAS DISCOMFORT IN SACRAL AREA AND A MEPILEX WAS PLACED AND PT FLOATED ON PILLOWS. PT ALSO GIVEN APAP WITH IMPROVED COMFORT. PT CURRENTLY AWAKE AND IN NO DISTRESS. CALL LIGHT IN REACH.
[2019-01-23 08:05] LABS: Anion Gap 6 mmol/L (6-16); Blood Urea Nitrogen 22 mg/dL (8-24); Bun/Creatinine Ratio 31.7 (12.0-20.0); CO2, Blood 34 mmol/L (21-32); Calcium, Blood 8.5 mg/dL (8.5-10.1); Chloride, Blood 101 mmol/L (98-108); Creatinine, Blood 0.69 mg/dL (0.40-1.00); Glomerular Filtration Rate >60 (60-); Glucose, Blood 112 mg/dL (70-99); Potassium, Blood 3.2 mmol/L (3.5-5.5); Sodium, Blood 141 mmol/L (136-145)
--- NOTE | 2019-01-23 19:28 | NUR ---
SHIFT SUMMARY PT STATES LIDOCAINE PATCH ON BACK IS HELPING WITH PAIN. PT DID NOT REQUIRE PAIN MEDS THIS SHIFT. FLUID RESTRICTION IMPLIMENTED. PT TOLERATING WELL. NO OTHER CHANGES IN ASSESSMENT AT THIS TIME. VSS.
--- NOTE | 2019-01-24 04:12 | NUR ---
SHIFT SUMMARY PT HAD A BETTER SHIFT TONIGHT. PT HAS BEEN ABLE TO SLEEP MORE. PT IS MORE COMFORTABLE. PT DISCOMFORT HAS RESPONDED WELL TO APAP. PT DISCOMFORT IS LOCATED IN SACRUM AREA STILL. PT REPOSITIONED OFTEN. PT CURRENTLY SLEEPING IN NO DISTRESS. CALL LIGHT IN REACH.
[2019-01-24 05:53] LABS: Anion Gap 3 mmol/L (6-16); Blood Urea Nitrogen 24 mg/dL (8-24); Bun/Creatinine Ratio 28.1 (12.0-20.0); CO2, Blood 40 mmol/L (21-32); Calcium, Blood 8.8 mg/dL (8.5-10.1); Chloride, Blood 98 mmol/L (98-108); Creatinine, Blood 0.86 mg/dL (0.40-1.00); Glomerular Filtration Rate >60 (60-); Glucose, Blood 115 mg/dL (70-99); Potassium, Blood 3.8 mmol/L (3.5-5.5); Sodium, Blood 141 mmol/L (136-145)
--- NOTE | 2019-01-24 18:14 | NUR ---
SHIFT SUMMARY PT DIURESSING WELL. TOLERATING FLUID RESTRICTION. PT STATES PAIN IS TOLERABLE AT THIS TIME. DENIES NEED FOR PAIN MED AT THIS TIME. PT MEDICATED FOR PAIN ONCE THIS SHIFT. VSS. NO OTHER CHANGES IN ASSESSMENT AT THIS TIME. WILL CONTINUE TO MONITOR UNTIL TURNOVER IS COMPLETE.
--- NOTE | 2019-01-25 04:41 | NUR ---
SHIFT SUMMARY PT HAD NO ISSUES NOTED. PT TX FOR DISCOMFORT WITH APAP PER EMAR. PT DOES NOT WANT TO USE NARCOTIC MED DUE HOW IT MAKES HER FEEL. PT WAS ABLE TO SLEEP WELL T/O SHIFT. PT FLUID RESTRICTION WAS MAINTAINED. PT CURRENTLY SLEEPING IN NO DISTRESS. CALL LIGHT IN REACH.
[2019-01-25 05:48] LABS: Bun/Creatinine Ratio 33.8 (12.0-20.0); Calcium, Blood 8.9 mg/dL (8.5-10.1); Creatinine, Blood 0.98 mg/dL (0.40-1.00); Potassium, Blood 3.4 mmol/L (3.5-5.5)
--- NOTE | 2019-01-25 08:17 | NUR ---
AWARE [facility] PRESS 92/55-78 PULSE. STS GIVE CURRENT MEDS-ZESTRIL AND DIURETIC AND WILL LOOK AT PARAMETERS.
--- NOTE | 2019-01-25 13:27 | NUR ---
CONTINUOUS SAT MONITOR DOES NOT ALWAYS PANTOGRAPH MACHINE SET UP OPERATOR PULSE ACCURATELY. WHEN MONITOR SHOWS 40'S, PER PCU TECH PULSE 80'S. PATIENT HAS PAC'S AND PVC'S. WCTM.
--- NOTE | 2019-01-25 18:17 | NUR ---
ALERT. ORIENTED. PER CHANGED PARAMETERS ON COREG TO HOLD IF SYSTOLIC <85. TOLERATING FLUID RESTRICTIONS. DIURESING WELL. USES CALL LIGHT APPROPRIATELY. CONTINUOUS SAT MONITOR DOES NOT ALWAYS HEEL LIFT GOUGER PULSE PATIENT HAS PVC'S AND PAC'S. TELE ON. WCTM.
[2019-01-26 05:06] LABS: Bun/Creatinine Ratio 34.5 (12.0-20.0); Creatinine, Blood 1.13 mg/dL (0.40-1.00)
--- NOTE | 2019-01-26 05:52 | NUR ---
Shift summary: Pt c/o pain in sacral area- tylenol given with adequate pain relief. Pt sleeping most of shift otherwise. Pt on telemetry - NSR with occ PAC's and PVC's. Pt on 4 liter O2.
[2019-01-26] MEDS ORDERED: ACET325 PO (12:22)
[2019-01-26] MEDS ORDERED: Lipitor80 MG PO (12:22)
[2019-01-26] MEDS ORDERED: DOCU100 PO (12:23)
[2019-01-26] MEDS ORDERED: TORSE20 PO (12:25)
[2019-01-26] MEDS ORDERED: ASPERCREME1 EACH TOP (12:25)
[2019-01-26] MEDS ORDERED: Micro-K10 MEQ PO (12:26)
--- NOTE | 2019-01-26 17:53 | NUR ---
DISCHARGE DISCHARGE MEDICATIONS AND INSTRUCTIONS EXPLAINED TO PATIENT. SHE STATED UNDERSTANDING. FOLLOW UP APPOINTMENTS WITH PCP AND CARDIOLOGY SCHEDULED. IV REMOVED WITHOUT DIFFICULTY. PATIENT TRANSPORTED HOME VIA [facility]. CAREGIVERS NOTIFIED OF TIME OF RETURN.
== END 2019-01-26 17:39 | disposition home health service (06) | DRG 291 ==
LOC: DELPENDDIS → ER 10:20 → MEDS 13:58 → ENPENDDIS 01-22 11:00 → MEDS 01-26 17:39
PROVIDERS: Emergency Medicine; Internal Medicine; ADMIT Internal Medicine
DX: I11.0 Hypertensive heart disease with heart failure (principal); J96.21 Acute and chronic respiratory failure with hypoxia; I50.43 Acute on chronic combined systolic (congestive) and diastolic (congestive) heart failure; J44.9 Chronic obstructive pulmonary disease, unspecified; I25.10 Atherosclerotic heart disease of native coronary artery without angina pectoris; I48.0 Paroxysmal atrial fibrillation; Z74.09 Other reduced mobility; I27.20 Pulmonary hypertension, unspecified; E03.9 Hypothyroidism, unspecified; E78.5 Hyperlipidemia, unspecified; Z95.5 Presence of coronary angioplasty implant and graft; Z99.81 Dependence on supplemental oxygen; Z87.891 Personal history of nicotine dependence; Z79.02 Long term (current) use of antithrombotics/antiplatelets; Z79.82 Long term (current) use of aspirin; Z79.899 Other long term (current) drug therapy
CPT/HCPCS: 36415; 71046; 80048; 80053; 83735; 83880; 84484; 85025; 93005; 93010; 94640; 94760; 94762; 96374; 97110; 97116; 97162; 97530; 99285-25; A9270; J1650; J1940; J7030

== ENCOUNTER 2019-04-04 12:31 | Inpatient (IN) | payer MEDICARE, OTHER ==
[~2019-04-04] VITALS: Ht 154.9 cm; Wt 43.0 kg
[~2019-04-04 12:31] MED LIST changes: +ALBU3IS NEB; +ALBU90OI6 INH; +ASPERCREME1 EACH TOP; +ASPI81CH PO; +ATORVASTATIN CA80 MG PO; +CARV3.125 PO; +DOCU100 PO; +FURO40 PO; +GUAI600T33 PO; +LEVSOD125 PO; +LISI5 PO; +Lipitor80 MG PO; +Metamucil Smooth1 EA PO; +Micro-K10 MEQ PO; +NITR.4SL SL; +PANTOPRAZOLE SO40 M1 PO; +SPIR25 PO; +THERA1 EACH PO; +TIOT18 INH; +TORSE20 PO
[2019-04-04 13:19] LABS: BASOPHILS ABSOLUTE AUTO 0.03 K/mm3 (0.00-0.23); BASOPHILS PERCENT AUTO 0 % (0-2); EOSINOPHILS ABSOLUTE AUTO 0.21 K/mm3 (0.00-0.68); EOSINOPHILS PERCENT AUTO 3 % (0-6); Hematocrit 36.7 % (33.0-51.0); Hemoglobin 11.5 g/dL (11.5-16.0); IMMATURE GRAN ABSOLUTE AUTO 0.02 K/mm3 (0.00-0.10); IMMATURE GRAN PERCENT AUTO 0 % (0-1); LYMPHOCYTES ABSOLUTE AUTO 2.13 K/mm3 (0.84-5.20); LYMPHOCYTES PERCENT AUTO 26 % (21-46); MONOCYTES ABSOLUTE AUTO 0.58 K/mm3 (0.16-1.47); MONOCYTES PERCENT AUTO 7 % (4-13); Mean Corpuscular HGB Conc 31.3 g/dL (31.5-36.5); Mean Corpuscular Volume 93 fL (80-100); Mean Platelet Volume 12.6 fL (9.1-12.4); NEUTROPHILS ABSOLUTE AUTO 5.21 K/mm3 (1.96-9.15); NEUTROPHILS PERCENT AUTO 64 % (41-73); Platelet Count 185 K/mm3 (150-400); RDW Coefficient Variation 14.5 % (11.7-14.2); RDW Standard Deviation 48.8 fL (35.1-46.3); Red Blood Cell Count 3.96 M/mm3 (3.80-5.20); White Blood Cell Count 8.18 K/mm3 (4.00-11.30)
[2019-04-04] MEDS ORDERED: ELIQUIS5 MG PO (13:25)
[2019-04-04] MEDS ORDERED: Vitamin E400 UNI4 (13:31)
[2019-04-04] MEDS ORDERED: Fruity C250 MG PO (13:31)
[2019-04-04 13:36] LABS: Alanine Aminotransfer (ALT/SGP 61 U/L (12-78); Albumin, Blood 3.9 g/dL (3.4-5.0); Albumin/Globulin Ratio 1.3 (0.8-1.8); Alk Phos 79 U/L (50-136); Anion Gap 6 mmol/L (6-16); Aspartate Aminotrans (AST/SGOT 41 U/L (12-37); Bilirubin, Total 0.7 mg/dL (0.1-1.0); Blood Urea Nitrogen 17 mg/dL (8-24); Bun/Creatinine Ratio 20.3 (12.0-20.0); CO2, Blood 31 mmol/L (21-32); Calcium, Blood 9.4 mg/dL (8.5-10.1); Chloride, Blood 102 mmol/L (98-108); Creatinine, Blood 0.84 mg/dL (0.40-1.00); Glomerular Filtration Rate >60 (60-); Glucose, Blood 117 mg/dL (70-99); Potassium, Blood 4.5 mmol/L (3.5-5.5); Sodium, Blood 139 mmol/L (136-145); Total Protein, Blood 6.9 g/dL (6.4-8.2)
[2019-04-04] MEDS ORDERED: CLOP75 PO (14:00)
--- NOTE | 2019-04-04 17:53 | NUR ---
PT ADMITTED/SHIFT SUMMARY PT ADMITTED AT 1530. PT IN STABLE CONDITION WITH VSS. PT SATING IN THE 90S ON 5L O2 VIA NC. PT ORIENTED TO ROOM. CALL LIGHT IN REACH. PT HAS ANXIETY RELATED TO SIGNIFICANT EXERTIONAL DYSPNEA. NO CHANGES IN ASSESSMENT AT THIS TIME. WILL CONTINUE TO MONITOR UNTIL TURNOVER IS COMPLETE.
--- NOTE | 2019-04-04 21:12 | NUR ---
SVT: OCCUPATIONAL THERAPY ASSISTANT NOTIFIED RN THAT PATIENT'S HEART RATE WAS TRENDING IN THE 180'S-200'S. PATIENT HAD JUST GOTTEN BACK IN BED FROM USING THE BSC. WHEN STAFF ENTERED ROOM PATIENT WAS SITTING UP IN BED AND WAS VERY SOB. CHARGE NURSE HARSH DOE CAME TO ROOM TO ASSESS PATIENT. EKG WAS OBTAINED. BLOOD PRESSURE UNREADABLE, MANUAL BLOOD PRESSURE CHECKED AND WAS STILL UNREADABLE. ROUTE SALES TRAINEE REPORTS PATIENT WAS IN SVT FOR APPROX 12 MINUTES BEFORE SHE TRENDED BACK DOWN TO SINUS TACH IN THE 120'S WITH FREQUENT PAC'S. WHICH IS WHAT PATIENT'S HEART RATE WAS BEFORE. PATIENT'S BLOOD PRESSURE FINALLY ABLE TO BE OBTAINED ONCE HER HEART RATE WAS BACK DOWN IN THE 120'S. DR HUSAIN CALLED AND UPDATED ON RUN OF SVT AND THAT PATIENT HAD BEEN SYMPTOMATIC. DR HUSAIN ALSO NOTIFIED THAT BP WAS UNABLE TO BE OBTAINED WHILE PATIENT'S HEART RATE WAS IN THE 180'S-200'S. A CARDIZEM GTT WAS ORDERED. DR HUSAIN ORDERED FOR THE CARDIZEM GTT TO BE STARTED AT 10 AND THEN TITRATED NEEDED FOR HEART RATE CONTROL. CARDIZEM RUNNING PER ORDERS. PATIENT IS MUCH LESS SOB AT THIS TIME AND REPORTS SHE IS FEELING BETTER. VITAL SIGNS CHARTED. WILL CONTINUE TO MONITOR.
[2019-04-04 21:49] LABS: Thyroid Stimulating Hormone 0.024 uIU/mL (0.360-4.800)
[2019-04-04 21:52] LABS: Troponin I 0.966 ng/mL (0.000-0.040)
--- NOTE | 2019-04-04 23:42 | NUR ---
VTACH MEDICINE TEACHER NOTIFIED THIS RN OF 11 BEAT RUN OF VTACH AT 2320; PT ASLEEP W/ HOB AT 45; WILL CONTINUE TO MONITOR
[2019-04-05 05:05] LABS: Hematocrit 33.4 % (33.0-51.0); Hemoglobin 10.4 g/dL (11.5-16.0); Mean Corpuscular HGB 29.1 pg (26.0-34.0); Mean Corpuscular HGB Conc 31.1 g/dL (31.5-36.5); Mean Corpuscular Volume 93 fL (80-100); Platelet Count 180 K/mm3 (150-400); RDW Coefficient Variation 14.6 % (11.7-14.2); RDW Standard Deviation 50.1 fL (35.1-46.3); Red Blood Cell Count 3.58 M/mm3 (3.80-5.20); White Blood Cell Count 7.54 K/mm3 (4.00-11.30)
--- NOTE | 2019-04-05 05:19 | NUR ---
ASSUMED CARE APPROXIMATELY 1900; PT A&O; SBA TO BSC BASELINE; PT HAD SEVERAL MINUTE RUN OF SVT AND LATER 11 BEAT RUN OF VT, SEE PREVIOUS NURSES NOTES; PT DESIRES TO GET UP TO BSC, HOWEVER ENCOURAGED TO ATTEMP TO USE BEDPAN DUE TO SEVERE SOB; PT PREFERS BSC AND TOLERATED ONCE HR CONTROLED; PT REMINDED AT TIMES TO BREATH THROUGH NOSE FOR USE OF NC, ON 5L NC; O2 SATS >90; CALL LIGHT IN REACH; BED IN LOWEST POSITION; WILL CONTINUE TO MONITOR AND ASSESS UNTIL HAND OFF TO DAY SHIFT RN.
[2019-04-05 05:27] LABS: Bun/Creatinine Ratio 20.2 (12.0-20.0); Calcium, Blood 8.6 mg/dL (8.5-10.1); Creatinine, Blood 0.99 mg/dL (0.40-1.00); Magnesium, Blood 1.7 mg/dL (1.6-2.4); Potassium, Blood 4.1 mmol/L (3.5-5.5)
[2019-04-05 05:51] LABS: Troponin I 1.08 ng/mL (0.000-0.040)
--- NOTE | 2019-04-05 08:40 | NUR ---
EKG DONE-SEE CHART. PT RX FOR NECK PAIN WITH NTG SL-STATES PAIN WENT FROM LEVEL 7 TO GONE AND THEN NOW "JUST SORENESS". STATES FEELS SHE COULD USE ANOTHER NTG BUT BP NOW 81/56 AFTER NTG. COLOR PALE, TREMORS-STATES NORMAL FOR HER, SKIN W/D. SECOND IV SITE PLACED. NOTIFIED DR. SEXTON OF PT UPDATE-WILL GET ECHO, CARDIOLOGY CONSULT.
--- NOTE | 2019-04-05 08:43 | NUR ---
PT AWAKE, ALERT, ABLE TO ANSWER QUESTIONS APPROPRIATELY. C/O NECK PAIN RIGHT POSTERIOR NECK, STATES FEELS PULLED MUSCLE. TACHYPNEIC, COLOR PALE, SKIN W/D. ST WITH PACS. HAD EKG LAST NIGHT, CALLED DR. SEXTON WITH EKG INFORMATION, WILL REPEAT. LUNGS CLEAR, OXYGEN VIA NC, SATURATIONS INTACT. PIV INTACT. CARDIZEM GTT AT 10 MG/HR. BP STABLE. NO N/V.
--- NOTE | 2019-04-05 09:39 | NUR ---
DR. SEXTON AT BEDSIDE. ECHO DONE. PT ASSISTED TO REPOSITION FOR COMFORT, STILL SOB WITH ANY MOVEMENT. STATES MILD PAIN RIGHT NECK. ABLE TO TAKE PO MEDS.
--- NOTE | 2019-04-05 09:58 | NUR ---
Echocardiogram completed.
--- NOTE | 2019-04-05 10:35 | NUR ---
DR. HAWKINS HERE-ASSESSING PT. PT SITTING UP IN BED. ABLE TO TAKE BITES BREAKFAST.
--- NOTE | 2019-04-05 10:59 | NUR ---
RX WITH TYLENOL FOR NECK DISCOMFORT. EATING BREAKFAST. BP STABLE
[2019-04-05 11:06] LABS: Creatine Kinase MB 6.9 ng/mL (0.0-3.6); Creatine Kinase MB Index 5.4 (0.0-4.0)
[2019-04-05 11:29] LABS: Troponin I 0.948 ng/mL (0.000-0.040)
--- NOTE | 2019-04-05 11:33 | NUR ---
PT REPORT FROM LETICIA LARRY. ASSUMED PT CARE.
--- NOTE | 2019-04-05 12:12 | NUR ---
PT MEDICATED WITH SCHEDULED CARDIZEM. VSS. PT TRYING TO EAT. PT HAS TREMORS THAT ARE SIGNIFICANT. PT VERY FRUSTRATED RE PAIN MANAGEMENT. STATES THAT SHE IS IN PAIN AND THAT ALL THESE THINGS WE ARE DOING DONT HELP HER PAIN. PREVIOUS RN HAD TRIED TYLENOL AND HEATING PAD. PT STATES NEITHER HAVE HELPED.
--- NOTE | 2019-04-05 12:51 | NUR ---
SPOKE WITH DR SEXTON RE PT CONTINUED NECK PAIN. PLAN TO ORDER FLEXERIL. WILL MEDICATE ACCORDINGLY.
--- NOTE | 2019-04-05 13:01 | NUR ---
PT MEDICATED WITH FLEXERIL PER AUG.
--- NOTE | 2019-04-05 14:25 | NUR ---
PT UP TO BSC WITH MINIMAL ASSISTANCE.
--- NOTE | 2019-04-05 14:34 | NUR ---
PT CONTINUES TO C/O PAIN TO NECK. STATES THAT SHE CANT TAKE IT ANYMORE. PT OFFERED WARM COMPRESS. PT AGREEABLE. PT BACK IN BED INDEPENDENTLY.
--- NOTE | 2019-04-05 14:54 | NUR ---
WARM COMPRESS PROVIDED. PT ASKING ABOUT SOMETHING FOR MOUTH AND NOSE AT THIS TIME. STATES SHE NEEDS SOMETHING FOR HER COUGH AND SOMETHING FOR HER DRY NOSE.
--- NOTE | 2019-04-05 15:46 | NUR ---
SPOKE WITH DR SEXTON RE PT CONCERNS FOR SOMETHING FOR COUGH AND NOSE. MED ORDERS RECEIVED. PER PT. REPOSITIONING PT ARM AND TEACHING PT SOME NECK EXERCISES ALLEVIATED PAIN.
--- NOTE | 2019-04-05 17:59 | NUR ---
VSS. PT MEDICATED PER EMAR.
--- NOTE | 2019-04-05 18:52 | NUR ---
SHIFT SUMMARY PT ALERT AND ORIENTED X4 THROUGHOUT SHIFT. TOLERATING NC O2 WELL. PT ABLE TO PARTICIPATE IN CARE WELL. PT FRAIL AND EASILY IRRITATED. PT HAD MANY COMPLAINTS TODAY, NECK PAIN (MADE BETTER WITH HEAT, FLEXERIL AND PHYSICAL THERAPY), NOSE AND THROAT IRRITATION (IMPROVED WITH TESSALON AND NORMAL SALINE NASAL RINSE). PT UP WITH MINIMAL ASSITANCE TO BSC. LOYDA DIET WELL. ON 1200ML FLUID RESTRICTION. DENIES CP. GETS WINDED EASILY.
--- NOTE | 2019-04-05 20:15 | NUR ---
CARE ASSUMPTION PT A&O X4. VSS. PT REPORTS HAVING COUGH PRIOR TO COUGH MEDICATION PER EMAR, PT DENIES FURTHER COUGH POST MEDICATION. LUNG SOUNDS CLEAR, DIM IN BASES. SPO2 > 90% ON 4L NC. CARDIZEM GTT @ 10 MG/HR. MONITOR SHOWS ST W/ PAC'S, HR 100-110. WILL CONTINUE TO MONITOR AND PROVIDE CARE.
--- NOTE | 2019-04-05 23:30 | NUR ---
CARDIZEM GTT PLACED ON STANDY @ 1764 UPON VS ASSESSMENT OF BP 96/50, HR 80-100.
[2019-04-06 04:39] LABS: Bun/Creatinine Ratio 18.3 (12.0-20.0); Calcium, Blood 8.7 mg/dL (8.5-10.1); Creatinine, Blood 1.09 mg/dL (0.40-1.00); Magnesium, Blood 1.6 mg/dL (1.6-2.4); Potassium, Blood 4.2 mmol/L (3.5-5.5)
--- NOTE | 2019-04-06 04:40 | NUR ---
5 BEAT RUN OF VTACH @ 0433. PT ASYMPTOMATIC. STRIP PRINTED IN CHART.
--- NOTE | 2019-04-06 05:05 | NUR ---
SHIFT SUMMARY PT A&O X4. LUNG SOUNDS CLEAR, DIM IN BASES. SPO2 > 90% ON 4L NC WHICH IS PT'S REPORTED HOME O2 USE. RR 20-30'S. PT SOB W/ STAND AND PIVOT TO BEDSIDE COMMODE W/ DESAT TO 85% ON 4L NC. O2 INCREASED TO 5L AND PT PURSED BREATHING W/ RETURN TO SPO2 > 92% AND PT RETURNED TO 4L NC. MONITOR SHOWS SR-ST W/ PAC'S, HR 80-110. 5 BEAT RUN OF VTACH THIS SHIFT @ 0433, SEE STRIP IN CHART. PT C/O PAIN IN R SHOULDER THAT PT STATES "COMES AND GOES" RATING PAIN AN 8/10 OR ABSENT. TRACE EDEMA TO BLE. HECTOR HOSE IN PLACE. WILL CONTINUE TO MONITOR AND PROVIDE CARE UNTIL REPORT OFF TO DAY SHIFT RN.
--- NOTE | 2019-04-06 20:14 | NUR ---
SHIFT SUMMARY A&Ox4, CALM AND COOPERATIVE WITH CARE. PT HAS TREMORS AT BASELINE. PT RESTING IN BED DURING SHIFT. UP TO BSC WITH SBA. PT SOB WITH EXERTION, SPO2 > 92% ON 4L O2 VIA NC AT REST AND 5L O2 VIA NC WITH ACTIVITY. PT BREATHING EVEN AND LABORED AT TIMES, PURSED LIP BREATHING. PT REPORTS PAIN IN SHOULDER. TELE SHOWING SR-ST, WITH SEVERAL EPISODES OF SVT 170-180'S, PT ENCOURAGES TO BEAR DOWN/VAGAL MANUVER WHICH RESOLVED SVT TO 120-140'S, DR HAWKINS NOTIFIED WITH EPISODES, NEW ORDER FOR IV DIGOXIN, FIELD TECHNICAL ASSISTANT PER ORDERS, SVT EPISODES CONTINUED, NEW ORDERS FOR AMIODARONE BOLUS AND GTT ORDERS ENTERED, TO CONTINUE TO PO CARDIZEM AND IV LASIX. PT REPORTS APPETEITE. FLUID RESTRICTIONS. OTHER VSS. NO OTHER ACUTE CHANGES NOTED. REPORT GIENV TO ONCOMING RN.
[2019-04-07 04:38] LABS: Bun/Creatinine Ratio 15.6 (12.0-20.0); Calcium, Blood 8.2 mg/dL (8.5-10.1); Creatinine, Blood 0.96 mg/dL (0.40-1.00); Magnesium, Blood 1.5 mg/dL (1.6-2.4); Potassium, Blood 3.8 mmol/L (3.5-5.5)
--- NOTE | 2019-04-07 05:13 | NUR ---
SHIFT SUMMARY PT SLEEPING IN ROOM COMFORTABLY AT THIS TIME. NO ACUTE CHANGES IN STATUS T/O NIGHT. PT SLEPT WELL. RESP EVEN UNLABORED ON 4L NC W/ SATS >92%. PT WAS 1 PERS ASSIST TO BSC, AND HAD SOME DYSPNEA ON EXERTION, PT TITRATED UP TO 5L O2 FOR RECOVERY. DENIED ANY PAIN. PT DENIED ANY OTHER NEEDS. CALL LIGHT IN REACH.
--- NOTE | 2019-04-07 18:12 | NUR ---
SHIFT SUMMARY PT A&Ox4. CALM AND COOPERATIVE WITH CARE. TREMORS NOTED. PT RESTING IN BED DURING SHIFT. UP TO BSC WITH SBA. PT DENIES PAIN T/O SHIFT, DISCUSSED PAIN MANAGEMENT WITH PT. PT SOB WITH EXERTION, ON 4L O2 VIA NC, TITRATED TO 5L WITH ACTIVITY AND RECOVERY. PER TELE SR-ST CURRENTLY AT 115, OFF AMIODARONE DRIP AND STARTED ON PO AMIODARONE. RECEIVING PO DIGOXIN, CARDIZEM AND IV LASIX. PT DENIES NAUSEA, STATES SHE HAS POOR APPETITE. VSS. NO OTHER ACUTE CHANGES NOTED DURING SHIFT. WILL CONTINUE TO MONITOR UNITL REPORT GIVEN TO ONCOMING RN.
[2019-04-08 03:43] LABS: BASOPHILS ABSOLUTE AUTO 0.02 K/mm3 (0.00-0.23); BASOPHILS PERCENT AUTO 0 % (0-2); EOSINOPHILS ABSOLUTE AUTO 0.33 K/mm3 (0.00-0.68); EOSINOPHILS PERCENT AUTO 4 % (0-6); Hematocrit 38.3 % (33.0-51.0); Hemoglobin 12.1 g/dL (11.5-16.0); IMMATURE GRAN ABSOLUTE AUTO 0.01 K/mm3 (0.00-0.10); IMMATURE GRAN PERCENT AUTO 0 % (0-1); LYMPHOCYTES ABSOLUTE AUTO 2.03 K/mm3 (0.84-5.20); LYMPHOCYTES PERCENT AUTO 24 % (21-46); MONOCYTES ABSOLUTE AUTO 0.95 K/mm3 (0.16-1.47); MONOCYTES PERCENT AUTO 11 % (4-13); Mean Corpuscular HGB 28.7 pg (26.0-34.0); Mean Corpuscular HGB Conc 31.6 g/dL (31.5-36.5); Mean Corpuscular Volume 91 fL (80-100); Mean Platelet Volume 12.2 fL (9.1-12.4); NEUTROPHILS ABSOLUTE AUTO 5.11 K/mm3 (1.96-9.15); NEUTROPHILS PERCENT AUTO 61 % (41-73); Platelet Count 202 K/mm3 (150-400); RDW Coefficient Variation 14.5 % (11.7-14.2); RDW Standard Deviation 47.8 fL (35.1-46.3); Red Blood Cell Count 4.21 M/mm3 (3.80-5.20); White Blood Cell Count 8.45 K/mm3 (4.00-11.30)
[2019-04-08 04:00] LABS: Bun/Creatinine Ratio 17.1 (12.0-20.0); Calcium, Blood 8.3 mg/dL (8.5-10.1); Creatinine, Blood 1.05 mg/dL (0.40-1.00); Magnesium, Blood 2.1 mg/dL (1.6-2.4); Potassium, Blood 3.9 mmol/L (3.5-5.5)
--- NOTE | 2019-04-08 06:19 | NUR ---
SHIFT SUMMARY PT SLEEPING IN ROOM COMFORTABLY AT THIS TIME. NO CHANGES IN STATUS T/O NIGHT. PT SLEPT WELL. REPS EVEN UNLABORED ON 4L NV AT REST W/ SATS >92%. PT HAS SOME DYSPNEA W/ EXERTION. DENIES CP OR OTHER PAIN AT THIS TIME. PT DENIES NEEDS AT THIS TIME RESTING COMFORTABLY. CALL LIGHT IN REACH. PT CALLAS APPROPRIATELY.
--- NOTE | 2019-04-08 08:40 | NUR ---
NURSING PCU DAYSHIFT: Assumed care of pt at approx 0700. A/O, pleasant, cooperative w/care. General weakness noted, visible tremors, able to xfer w/one staff assist. Denies any pain/discomfort at rest. Skin is fragile, scattered bruising to UE's, no breakdown noted. Tele in place, MAT w/HR 95-110, no c/o CP/pressure, BP stable, no noted edema. L/S cta with dim/tight bases, dyspnea w/minimal exertion, 4L NC, moist/DATA KEYER cough. Abd SNT, BT+, voiding w/o difficulty. PIV x2, s/l. No s/s of acute distress at this time. Pt sitting up in bed having breakfast, denies any current needs or questions regarding plan of care. Awaiting rounding from PMD, call light in reach, cont to monitor for any changes.
--- NOTE | 2019-04-08 12:18 | NUR ---
NURSING PCU DAYSHIFT TRANSFER: No acute changes noted t/o the a.m. Seen by PMD, new d/o received. Pt changed to medical status w/tele. Bed assignment received, awaiting call from accepting RN to provide report. Continue to monitor until transfer is completed.
[2019-04-08 14:21] LABS: Digoxin (Lanoxin) 1.88 ug/mL (0.80-2.00)
--- NOTE | 2019-04-08 14:25 | NUR ---
Initial Visit: Palliative Care Consult for Goals of Care and Advanced Care Planning. Pt is A&O and denies pain at this time. Pt reports SOB that worsens with exertion. Mild anxiety notes. Engaged in therapeutic discussion regarding goals of care and advanced care planning. Pt reports [facility] living in [facility]. Listened as she reports a year ago she was not having any problems but admits to noticing a decline with her health recently. Pt reports plan of having her health improve including her heart and COPD. Educated on disease process including trajectory of her CHF and COPD. Educated Pt on hospice as an option. Unclear at this time on how receptive Pt is to this option due to PT coming in to work with Pt. Asked Pt if this RN can call and discuss with her daughter. Pt declines request and states her daughter has too many things to worry about including her who has cancer. She states "I don't want my daughter to know how bad I am". This RN ended visit so PT can work with Pt. Spoke with bedside nurse Lala and discussed case. Palliative Care lauren remain available.
--- NOTE | 2019-04-08 16:50 | NUR ---
PATIENT TRANSFERRED FROM PCU THIS SHIFT. SHE IS ALERT AND ORIENTED AND ABLE TO EXPRESS ANY NEEDS. PATIENT IS A ONE ASSIST TO THE BATHROOM. SHE WILL OFTEN HOLD HER BREATH RESULTING IN DESATURATION SHE DOES NOT LIKE TO BREATHE IN PEOPLES FACES. SHE HAS BEEN ENCOURAGED TO KEEP BREATHING AND NOT TO WORRY ABOUT BREATHING IN STAFFS FACES. SHE IS VERY COMPLIANT WITH CARES AND FRIENDLY WITH STAFF. CALL LIGHT WITHIN REACH.
--- NOTE | 2019-04-09 05:14 | NUR ---
SHIFT SUMMARY PT RESTED IN RECLINER CHAIR ALL NIGHT. STATED IT WAS MORE COMFORTABLE THAN THE BED AND SHE PREFERRED TO SLEEP THERE. PT ON TELE WITH RATE IN RHYTHM BEING MAT W/BBB AT 104. HECTOR HOSE AND YELLOW NON SKID SOCKS. BRAKES LOCKED ON RECLINER CHAIR. CALL LIGHT AN BELONGINGS WITHIN REACH. REPORT GIVEN TO ONCOMING RN.
[2019-04-09 05:57] LABS: Bun/Creatinine Ratio 23.9 (12.0-20.0); Calcium, Blood 8.4 mg/dL (8.5-10.1); Creatinine, Blood 0.96 mg/dL (0.40-1.00); Potassium, Blood 4.3 mmol/L (3.5-5.5)
--- NOTE | 2019-04-09 17:39 | NUR ---
NO ACUTE CHANGES TO PATIENT. SHE IS A/O AND ABLE TO CALL APPROPRIATELY. SHE HAS BEEN UP IN HER CHAIR MOST OF THE SHIFT. SHE HAS HAD NO COMPLAINTS OF PAIN. CALL LIGHT WITHIN REACH.
--- NOTE | 2019-04-10 06:19 | NUR ---
SHIFT SUMMARY: A/O x 3. Making needs known. Remained up in recliner in room all night. Slept intermittently. SOB with exertion, resps 24, non-labored, no resp distress. - on 4L during the night. Tremoring in bilateral hands. Denies pain. No complaints at this time. Call button within reach.
--- NOTE | 2019-04-10 17:43 | NUR ---
SHIFT SUMMARY: PT IS A/O X 4 AND HAS NO C/O PAIN. SHE CONTINUES TO HAVE SOB ON EXERTION AND FINE TREMORS IN HANDS.PT CONTINUES WITH RT TX. PT HAS BEEN UP TO CHAIR ALL DAY PER HER REQUEST AND TRANSFERS TO THE [facility] TO TOILET. PT IS PLEASANT AND COOPERATIVE WITH HER CARE. SHE IS WATCHING TV AND IS ABLE TO MAKE HER NEEDS KNOWN.
--- NOTE | 2019-04-11 04:40 | NUR ---
SHIFT SUMMARY: A/O x 3. Communicating needs. B/P 100/50, 02 93-96% on 4L via NC. SOB with exertion. Resps regular, non-labored at rest. Pt remained sitting up in recliner all night. T/f independently to BSC. Encouraged pt to use call button for t/f. Awake much of the night but reports she feels well rested d/t to frequent napping. Requesting snacks and sandwich during the night. Notable tremoring of BUE. Requested PRN metamucil at reporting that despite BM durign the day she cont to feel bloated and constipated. No complaints of pain. Call button within reach.
--- NOTE | 2019-04-11 15:49 | NUR ---
Received call from Dr Aviles and discussed case. Dr Aviles reports Pt may benefit from palliative care F/U. Pt is resting in recliner chair upon arrival. Pt appears frustrated and she engages in conversation regarding her choices and condition of her heart. Listened and validated Pt's concerns. Educated Pt on prognosis of not just her heart but her end stage COPD. After few minutes of conversation Pt is less frustrated and reports understanding. Pt appears more at ease and reports being agreeable with hospice. Re-enforced education of hospice philosophy with V/U made by Pt. Provided hospice brochures for angencies to choose from. Pt reports no other concerns at this time and expresses appreciation of visit. Received verbal permission from Pt to contact daughter Loretta and discuss case. Spoke with bedside nurse Alverto and discussed case. Called and spoke with Pt's daughter Loretta ([phone]). Engaged in theapeutic discussion regarding Pt's choice for hospice. Educated Loretta on hospice philosophy with V/U made by Loretta. Loretta reports experiencing hospice 2 times in the past from other family members. Educated Loretta on Pt's disease process. Loretta is in agreement with Pt's decision. Listened as Loretta reports her just receiving surgery from cancer and having medical issues herself. Educated Loretta on the need for Pt to receive more fuel cell binder assistance and will report need to hospital caremanager. Loretta reports no concerns at this time. Palliative Care will remain available.
--- NOTE | 2019-04-11 17:17 | NUR ---
SHIFT SUMMARY: PT IS A/O X 4 AT BASELINE AND HAS NO C/O PAIN. SHE IS UP TO RECLINER PER HER REQUEST AND USES THE [facility] FOR TOILETING. SHE CONTINUES TO HAVE DYSPNEA WITH EXERTION. PT TAKES HER PILLS WHOLE AND IS PLEASANT AND COOPERATIVE WITH HER CARE. PT IS UP WATCHING TV AND MAKE HER NEEDS KNOWN.
--- NOTE | 2019-04-12 04:30 | NUR ---
SHIFT SUMMARY PT APPEARED TO SLEEP WELL THROUGH MUCH OF THE EVENING. TRANSFERED SELF INDEPENDENTLY TO THE [facility]. PT BECOMES VERY SOB WITH MINIMAL EXERTION AND OCCASIONALLY EVEN AT REST. PT IS ON HER BASELINE DOSE OF O2 VIA NC AT 4 L. DENIES ANY PAIN OR DISCOMFORT. TELEMETRY TECHS HAD A DIFFICULT TIME READING STRIPS THIS EVENING DUE TO PT'S BASELINE TREMORS. WHEN THEY COULD READ THEY IDENTIFIED PT'S RHYTHM SINUS TACH WITH PAC'S IN THE LOW 100'S. PT ALSO HAD AN 11 BEAT RUN OF VTACH AT 0112, THIS WAS NOT REPORTED TO THIS RN UNTIL 0430. PT'S BP REMAINS ON THE HYPOTENSIVE SIDE BUT WAS SLIGHTLY IMPROVED THIS EVENING. PT REMAINED IN A RECLINER THROUGHOUT THE NIGHT PER PT REQUEST. OTHERWISE NO ACUTE CHANGES. WILL CONTINUE TO MONITOR.
--- NOTE | 2019-04-12 10:15 | NUR ---
Pt visit this AM. Pt reports making a decision for [facility]. Stayed and visited with Pt. Listened as Pt expresses frustrations. She reports plan to remain optomisitic. Answered questions and remained therapeutic throughout visit. Instructed Pt to contact palliative care with any questions or concerns. Spoke with [facility] Liaalmaz Olivera and reported Pt's choice for [facility]. Will discuss with caremanager regarding the need for Pt to have more caregiver hours. Palliative Care will remain available.
[2019-04-12] MEDS ORDERED: Amiodarone HCl200 MG (11:59)
[2019-04-12] MEDS ORDERED: BENZ100A PO (12:00)
[2019-04-12] MEDS ORDERED: DILT180 PO (12:01)
[2019-04-12] MEDS ORDERED: CLOP75 PO (12:01)
[2019-04-12] MEDS ORDERED: FURO40 PO (12:02)
[2019-04-12] MEDS ORDERED: LISI5 PO (12:03)
[2019-04-12] MEDS ORDERED: POTA10T (12:05)
[2019-04-12] MEDS ORDERED: PRED20 (12:07)
--- NOTE | 2019-04-12 13:09 | NUR ---
Received call from CLIENT SUCCESS DIRECTOR stating Pt is requesting a visit from this RN. Spoke with resident care manager rn Tamar and she will meet with Pt as well. Arrived to Pt's room with Tamar and [facility] Joselin is present. Listened as Pt expresses concerns with hospitalist visit. Pt reports hospitalist was planning to discharge Pt to SNF and Pt was not happy with this plan. Instructed Pt plan is for her to discharge home with hospice if these are still her wishes. Discussed the importance of increasing caregiver support in the home for her safety. Pt reports still struggling with her prognosis and feels her choices are limited. Caremanager Tamar offers home with home health. Pt reports she will consider her options. Palliative Care will remain available.
--- NOTE | 2019-04-12 16:32 | NUR ---
Spiritual Care intial note: Conchita spoke at length about her son who in a MVA one year ago this month. She is still actively grieving this loss. He dtr lives locally, but she is caring for her who is battling cancer. Conchita does not want to burden her dtr. She is also independant and does not want to leave her home. Conchita has had numerous visitors today, and says she is overwhelmed by information and options. I sat quietly with her, providing theraputic listening and gentle bereavement group therapy counselor. Prayer said at conclusion of visit. I will remain available.
--- NOTE | 2019-04-12 18:07 | NUR ---
PATIENT DISCHARGE: PATIENT DISCHARGED TO HOME THIS SHIFT. MEDICATION RECONCILIATION COMPLETED; [facility] [place]; HARD SCRIPTS PROVIDED TO PATIENT FOR CONTROLLED SUBSTANCES. DISCHARGE EUCATION COMPLETED WITH PATIENT. PATIENT TRANSPORTED TO EXIT BY [facility] WITH WHEELCHAIR AT 1735. PATIENT DEPARTED [facility] VIA [facility].
== END 2019-04-12 17:37 | disposition home or self-care (01) | DRG 280 ==
LOC: ER 12:31 → PCU 12:32 → MEDS 04-08 12:45
PROVIDERS: Emergency Medicine; Internal Medicine; Internal Medicine Interventional Cardiology; ADMIT Internal Medicine
DX: I13.0 Hypertensive heart and chronic kidney disease with heart failure and stage 1 through stage 4 chronic kidney disease, or unspecified chronic kidney disease (principal); I50.33 Acute on chronic diastolic (congestive) heart failure; I21.A1 Myocardial infarction type 2; J96.21 Acute and chronic respiratory failure with hypoxia; J96.22 Acute and chronic respiratory failure with hypercapnia; E43 Unspecified severe protein-calorie malnutrition; E87.1 Hypo-osmolality and hyponatremia; J44.1 Chronic obstructive pulmonary disease with (acute) exacerbation; Z68.1 Body mass index [BMI] 19.9 or less, adult; I47.1 Supraventricular tachycardia; Z51.5 Encounter for palliative care; N18.3 Chronic kidney disease, stage 3 (moderate); I25.10 Atherosclerotic heart disease of native coronary artery without angina pectoris; I48.0 Paroxysmal atrial fibrillation; E03.9 Hypothyroidism, unspecified; E87.6 Hypokalemia; I25.2 Old myocardial infarction; E11.22 Type 2 diabetes mellitus with diabetic chronic kidney disease; Z87.891 Personal history of nicotine dependence; Z99.81 Dependence on supplemental oxygen; Z79.01 Long term (current) use of anticoagulants; Z86.73 Personal history of transient ischemic attack (TIA), and cerebral infarction without residual deficits; Z95.5 Presence of coronary angioplasty implant and graft; E78.5 Hyperlipidemia, unspecified; K59.00 Constipation, unspecified
CPT/HCPCS: 36415; 71045; 71046; 80048; 80053; 80162; 82550; 82553; 82947; 83735; 83880; 84100; 84443; 84484; 85025; 85027; 93005; 93010; 93306; 94640; 94760; 96374; 97110; 97116; 97162; 97165; 97530; 97535; 99285-25; A9270; J0282; J1160; J1940; J3475; J7060; J7512